=== PATIENT | male | born 1935 | race Caucasian/White ===

== ENCOUNTER 2016-11-08 08:36 | Outpatient (CLI) | payer MEDICARE, BC ==
[~2016-11-08] VITALS: Ht 182.9 cm; Wt 122.7 kg
--- NOTE | ~2016-11-08 | HEMODYNAMI ---
PATIENT:JOYCELYN ALEXANDER MEDICAL RECORD: [id number] : 35 LOCATION:[facility] ADMISSION DATE: 11/08/16 Generatedon:11/08/201612:59 Patient name: JOYCELYN ALEXANDER Patient #: [id number] SSN: [id number] : 1935 Date of study: 11/08/2016 Page: Of Hemodynamic Procedure Report Patient Data Patient Demographics Procedure consent was obtained First Name: JOYCELYN Gender: Male Last Name: BENJAMIN : 1935 Patient #: [id number] Age: 81 year(s) Race: SSN: [id number] Additional ID: [id number] Contact details [address]: [address] [place] [address] RO[address] State: [place] City: [place] Zip code: [address] Past Medical History History of disease Date Diagnosis Comments CAD PVD Allergies: No known allergies Admission Admission Data Admission Date: 11/08/2016 Admission Time: 8:36 Arrival Date: 11/08/2016 Arrival Time: 0:00 Admit Source: Other Insurance Payor: Private health insurance, Medicare Height (in.): 72 BSA: 2.4 (m2) Height (cm.): 182.88 BMI: 35.8 (kg/m2) Weight (lbs.): 264 Weight (kg.): 119.75 Lab Results Lab Result Date: 11/08/2016 Lab Result Time: 0:00 Biochemistry Name Units Result Min Max BUN mg/dl 12 --(-*--)-- 7 18 Creatinine mg/dl 1.2 --(---*)-- 0.6 1.3 CBC Name Units Result Min Max Hemoglobin g/dl 11.7 *-(----)-- 13.5 17.5 Procedure Procedure Types Cath Procedure Diagnostic Procedure LHC LHC w/Coronaries Procedure Description Procedure Date Procedure Date: 11/08/2016 Procedure Start Time: 12:34 Procedure End Time: 12:53 Procedure Staff Name Function Nishant Almonte MD Performing Physician Ajit Allison RT Scrub Cele Jensen RN Nurse Emmy Bui RN Nurse Blair Conti RN Technical Solutions Consultant Rut Prieto RT Monitor Procedure Data Cath Procedure Fluoroscopy Diagnostic fluoroscopy Total fluoroscopy Time: 4.8 time: 4.8 min min Diagnostic fluoroscopy Total fluoroscopy dose: 999 dose: 999 mGy mGy Contrast Material Contrast Material Type Amount (ml) Isovue 300 107 Entry Location Entry Primary Successful Side Size Upsize Upsize Entry Closure Succes sful Closure Location (Fr) 1 (Fr) 2 (Fr) Remarks Device Remarks Femoral Right 5 Fr 6 Fr Vascade artery Short Closure System Estimated blood loss: 10 ml Diagnostic catheters Device Type Used For End Catheter Placement Cordis 5Fr Pigtail Procedure Catheter (MP) Cordis 5Fr JL 4.0 Procedure Catheter (MP) Cordis 5Fr 3DRC Catheter Procedure (MP) Cordis Infinity 5Fr JL 5 catheter Procedure Complications No complications Procedure Medications Medication Administration Route Dosage Oxygen NC 2 l/min Heparin Flush Bag added to field 2 bags (1000units/500ml NS) Lidocaine 2% added to field 20 Benadryl I.V. 50 mg Versed I.V. 1 mg Fentanyl I.V. 50 mcg Versed I.V. 1 mg Fentanyl I.V. 50 mcg Versed I.V. 0.5 mg Fentanyl I.V. 25 mcg Versed I.V. 0.5 mg Fentanyl I.V. 25 mcg Hemodynamics Rest BSA: 2.4 (m2) HGB: 11.7 (g/dl) O2 Consumption: Estimated: 326.4 (ml/min) O2 Cons umption indexed: Estimated:136 (ml/min/m) Pre Cath Intra NCS Post Cath Vital Signs Time Heart Resp SPO2 etCO2 YG1msps NIBP (mmHg) Rhythm Pain Sedation Rate (ipm) (%) (mmHg) (mmHg) Status Level (bpm) 12:24:04 62 16 99 0 0 168/82(115) NSR 0 (11) 10(A) , No pain 12:28:28 59 18 98 0 0 168/84(121) NSR 0 (11) 10(A) , No pain 12:32:47 67 14 95 0 0 146/76(128) NSR 0 (11) 10(A) , No pain 12:37:02 62 15 96 0 0 136/74(110) NSR 0 (11) 10(A) , No pain 12:41:17 67 16 94 0 0 148/75(108) NSR 0 (11) 9(A) , No pain 12:45:35 75 17 94 0 0 130/65(93) NSR 0 (11) 9(A) , No pain 12:49:47 75 18 97 0 0 143/72(115) NSR 0 (11) 9(A) , No pain 12:54:03 77 16 95 0 0 141/71(96) NSR 0 (11) 10(A) , No pain Medications Time Medication Route Dose Verified Delivered Reason Notes Effec tiveness by by 12:10:20 Oxygen NC 2 Cele Cele used for l/min Jensen Jensen overcoiler RN 12:10:41 Heparin Flush added 2 Cele Cele used for Bag to bags Jensen Jensen procedure (1000units/500ml field RN RN NS) 12:10:49 Lidocaine 2% added 20ml Cele Cele used for to vial Jensen Jensen procedure field RN RN 12:22:47 Benadryl I.V. 50 mg Cele Cele Per Jensen Jensen physician RN RN 12:27:52 Versed I.V. 1 mg Cele Cele for Jensen Jensen sedation RN RN 12:27:57 Fentanyl I.V. 50 Cele Cele for mcg Jensen Jensen sedation RN RN 12:30:19 Versed I.V. 1 mg Cele Cele for Jensen Jensen sedation RN RN 12:30:22 Fentanyl I.V. 50 Cele Cele for mcg Jensen Jensen sedation RN RN 12:31:34 Versed I.V. 0.5 Cele Cele for mg Jensen Jensen sedation RN RN 12:31:40 Fentanyl I.V. 25 Cele Cele for mcg Jensen Jensen sedation RN RN 12:49:23 Versed I.V. 0.5 Cele Buffie for mg Jensen Bui RN sedation RN 12:49:30 Fentanyl I.V. 25 Cele Buffie for mcg Jensen Bui RN sedation equipment lead Log Time Note 12:08:25 Patient Height : 72 inches 12:08:52 Patient Weight : 264 lbs 12:08:52 Insurance Payor : Private health insurance, Medicare 12:09:02 Admit Source: Other 12:09:05 Arrival Date: 11/08/2016 12:00:00 AM 12:09:19 Diagnostic Cath Status : Elective 12:10:15 Blair Conti RN sent for patient. Start room use. 12:10:17 Time tracking: Regular hours 12:10:20 Oxygen 2 l/min NC was given by Cele Jensen RN; used for procedure; 12:10:23 Plan of Care:Hemodynamics will remain stable., Cardiac rhythm will remain stable., Comfort level will be maintained., Respiratory function will remain adequate., Patient/ family verbilizes understanding of procedure., Procedure tolerated without complication., Recovers from procedure without complications.. 12:10:32 Patient received from Outpatients to CCL 1 Alert and oriented. Tansferred to table in Supine position. 12:10:41 Heparin Flush Bag (1000units/500ml NS) 2 bags added to field was given by Cele Jensen RN; used for procedure; 12:10:44 H&P Date Dictated: 11/07/2016 Within 30 days and on chart., H&P Addendum completed by physician on day of procedure. (MUST COMPLETE FOR ALL OUTPATIENTS). 12:10:48 Family in waiting room. 12:10:49 Lidocaine 2% 20ml vial added to field was given by Cele Jensen RN; used for procedure; 12:10:59 Patient NPO since Midnight. 12:11:10 Patient allergic to No known allergies 12:11:24 Is the patient allergic to Iodine/contrast media? No. 12:17:45 Warm blankets applied, and bianca hugger turned on for patient comfort. 12:17:48 Correct patient and procedure confirmed by team. 12:17:50 Signed procedure consent form obtained from patient. 12:17:57 Is patient on blood thinner?Yes 12:18:02 ACC The patient was administered the following blood thiners within the last 24 hours: ACCPlavix 12:18:14 Patient diabetic? No. 12:18:28 Previous problem with sedation/anesthesia? No ? 12:18:55 Lab Result : BUN 12 mg/dl 12:18:55 Lab Result : Hemoglobin 11.7 g/dl 12:18:55 Lab Result : Creatinine 1.2 mg/dl 12:20:03 ECG and BP/O2 sat monitors applied to patient. 12:22:18 Snore? Yes 12:22:22 Sleep apnea? Yes 12:22:24 Deviated septum? No 12::26 Opens mouth fully? No 12:22:28 Sticks out tongue? Yes 12:22:38 Dentures? No ? 12:22:46 Patient pain scale 0/10 ?. 12::47 Benadryl 50 mg I.V. was given by Cele Jensen RN; Per physician; 12::55 IV patent on arrival in left forearm with 0.9% NaCl at [facility]. 12::57 Vital chart was started 12:23:01 Lab results completed and on chart. 12::07 Right groin area was prepped with chlora-prep and draped in sterile fashion 12::08 Alarms reviewed by R. N. 12::09 Sharps counted by scrub and verified by R.N. 12:26:43 Physician arrived 12::45 --------ALL STOP TIME OUT------ 12::49 Final Timeout: patient, procedure, and site verified with staff and physician. All members of the team are in agreement. 12::56 Right groin site verified by team. 12::59 Physical assessment completed. ASA score P 2 - A patient with mild systemic disease as per Nishant Almonte MD. 12:27:05 Sedation plan: IV Moderate Sedation Versed, Fentanyl 12::52 Versed 1 mg I.V. was given by Cele Jensen RN; for sedation; 12::57 Fentanyl 50 mcg I.V. was given by Cele Jensen RN; for sedation; 12::19 Versed 1 mg I.V. was given by Cele Jensen RN; for sedation; 12:: Fentanyl 50 mcg I.V. was given by Cele Jensen RN; for sedation; :34 Versed 0.5 mg I.V. was given by Cele Jensen RN; for sedation; 12::40 Fentanyl 25 mcg I.V. was given by Cele Jensen RN; for sedation; 12:34:14 Use device set Femoral Dx 12::18 Procedure started. 12::18 Full Disclosure recording started 12:34:22 Local anesthetic to right femoral artery with Lidocaine 2% by Nishant Almonte MD.INITIAL ACCESS ONLY 12:34:23 Zero performed for pressure channel P1 12:34:34 Zero performed for pressure channel P1 12:34:45 Zero performed for pressure channel P1 12:35:00 Acist Syringe opened to sterile field. 12:35:01 Bag Decanter opened to sterile field. 12:35:01 Cardinal Cath Pack opened to sterile field. 12:35:01 Terumo 5Fr [place] Sheath opened to sterile field. 12:35:02 St Jose 260cm J .035 wire opened to sterile field. 12:35:03 Acist Hand Control opened to sterile field. 12:35:04 Acist Manifold opened to sterile field. 12:35:05 Cordis Infinity 5Fr Multipack catheter opened to sterile field. 12:35:08 Tegaderm 4 x 4 opened to sterile field. 12:35:21 A 5 Fr sheath was inserted into the Right Femoral artery 12:38:57 A Cordis 5Fr Pigtail Catheter (MP) was advanced over the wire and used for Procedure. 12:39:02 LV gram done using HUDSON 12:39:07 LV angiography performed. 12:40:09 EF : 55 % 12:40:13 Catheter removed. 12:40:54 A Cordis 5Fr JL 4.0 Catheter (MP) was advanced over the wire and used for Procedure. 12:41:26 LCA angiography performed. 12:41:29 Catheter removed. 12:41:46 A Cordis 5Fr 3DRC Catheter (MP) was advanced over the wire and used for Procedure. 12:41:56 RCA angiography performed. 12:44:02 Catheter removed. 12:45:41 A Cordis Infinity 5Fr JL 5 catheter was advanced over the wire and used for .unable to cannulate 12:45:54 Terumo 6Fr [place] Sheath opened to sterile field. 12:46:11 Sheath upsized to a 6 Fr Short. 12:47:37 Medtronic Launcher 6Fr EBU 4.5 guide catheter opened to sterile field. 12:47:54 LCA angiography performed. 12:49:23 Versed 0.5 mg I.V. was given by Emmy Bui RN; for sedation; 12:49:30 Fentanyl 25 mcg I.V. was given by Emmy Bui RN; for sedation; 12:51:12 Catheter removed. 12:51:21 Vascade 6/7 Fr Closure Device opened to sterile field. 12:51:29 Procedure ended.(Physican Out) 12:51:43 Fluoroscopy time 04.80 minutes. 12:51:51 Flurop Dose total: 999 12:51:51 Fluoroscopy dose: 999 mGy 12:51:59 Contrast amount:Isovue 300 107ml. 12:52:01 Sharps counted by scrub and verified by R.N. 12:52:04 Insertion/operative site no bleeding no hematoma. 12:52:08 Post Procedure Pulses reassessed and unchanged 12:52:12 Post-procedure physical assessment completed. ASA score P 2 - A patient with mild systemic disease as per Nishant Almonte MD. 12:52:17 Post procedure rhythm: unchanged. 12:52:22 Estimated blood loss: 10 ml 12:52:34 Sheath removed intact; hemostasis achieved with Vascade Closure System to the Right Femoral artery. 12:52:41 Post procedure instruction explained to patient.Patient verbalizes understanding. 12:52:49 Procedure and supply charges have been captured, reviewed, submitted and are correct. 12:53:18 Procedure Complication : No complications 12:53:20 Vital chart was stopped 12:53:28 See physician's report for complete and final results. 12:53:46 Report given to Outpatients. 12:53:49 Patient transfered to Outpatients with Stretcher. 12:53:52 Procedure ended. 12:53:52 Full Disclosure recording stopped 12:53:55 End room use (Document Last) 12:53:55 End room use (Document Last) Device Usage Item Name Manufacture Quantity Catalog Hospital Part Current Minimal Lot# / Number Charge Number Stock Stock Serial# Code Acist Acist 1 [id number] [id number] [id number] 20 Syringe Medical Systems Inc Bag Microtek 1 2002S 514616 45507 907471 5 [employer] Cardinal Cardinal [address] 400168 81318 430486 5 AutoRadio [facility] 1 [id number] 559404 838708 015424 [address] Jose 1 970425 075424 186959 883085 30 260cm J .035 wire Acist Acist 1 20838 323820 242660 879011 5 Hand Medical Control Systems Inc Acist Acist 1 26399 069146 939760 993907 5 Gamervision [employer] Inc Cordis Cardinal 1 [id number] 428538 96903 455446 30 [employer] Tapjoy 5Fr Multipack catheter Tegaderm 3M 1 [id number] 957425 828883 902973 5 4 x 4 Cordis Cardinal 1 095391 5 5Fr Health Pigtail Catheter (MP) Cordis Cardinal 1 176175 5 5Fr JL Health 4.0 Catheter (MP) Cordis Cardinal 1 [id number] 5 5Fr 3DRC Health Catheter (MP) Cordis Cardinal 1 [id number] 178068 173121 233149 5 Amcom Software 5Fr JL 5 catheter Terumo Terumo 1 [id number] 101904 865225 098945 40 6Fr [place] Sheath Medtronic Medtronic 1 [id number] 473274 13816 987893 0 Launcher 6Fr EBU 4.5 guide catheter Vascade Cardiva 1 [id number] 224259 879009 878979 5 6/7 Fr Medical, Closure Inc. Device Signature Audit Clayton Stage Time Signature Unsigned Intra-Procedure 11/08/2016 Rut Prieto 12:59:45 PM RT(R) Signatures Monitor : Rut Prieto Signature : RT Date : Time : [address] [address]
[~2016-11-08 08:36] MED LIST: AMBIEN10 MG PO; ANUSOL-HC25 MG RC; ASPIRIN 81 MG E81 MG PO; ASPIRIN81 MG PO; BAYER CHEWABLE81 MG PO; BIAXIN 500 MG500 MG PO; CARAFATE1 G; CO Q-10200 MG PO; CRESTOR10 MG PO; CRESTOR5 MG PO; DIOVAN160 MG; DIOVAN320 MG PO; EFFIENT10 MG PO; FERROUS SULFAT325 MG PO; HYDROCODON-ACE1 EAC7 PO; MOTRIN800 MG PO; MULTIPLE VITAMI1 TA1 PO; NORVASC10 MG; NORVASC10 MG PO; OMEGA-3100 MG PO; PLAVIX75 MG PO; PRAVACHOL40 MG PO; PRILOSEC20 MG PO; PROCTOSOL HC 2.5%; PROTONIX40 MG PO; ULTRAM50 MG PO; VICODIN 5/500 T1 TAB PO; ZETIA10 MG PO
[2016-11-08] MEDS ORDERED: BACTRIM DS TABL1 TAB PO (09:38)
[2016-11-08 09:42] VITALS: BP 125/66; Ht 182.9 cm; Wt 122.7 kg
[2016-11-08 10:10] LABS: CALCIUM 8.5 mg/dL (8.5-10.1); CARBON DIOXIDE 23.8 mmol/L (21.0-32.0); CREATININE - SERUM 1.2 mg/dL (0.6-1.3); POTASSIUM - SERUM 4.8 mmol/L (3.5-5.1)
[2016-11-08 10:16] LABS: BASOPHILS 0.5 % (0.0-2.0); EOSINOPHILS 4.4 % (0-7); HEMATOCRIT 35.7 % (42.0-54.0); HEMOGLOBIN 11.7 g/dL (13.5-17.5); LYMPHOCYTES 34.7 % (15-50); MCH 31.4 pg (26.0-34.0); MCHC 32.8 g/dL (31.0-37.0); MCV 95.7 fL (80.0-100.0); MEAN PLATELET VOLUME 9.6 fL (7.4-10.4); MONOCYTES 7.1 % (2-11); NEUTROPHILS 53.3 % (40-80); PLATELET COUNT 210 10x3/uL (130-400); RBC 3.73 10x6/uL (4.20-6.10); RDW 13.6 % (11.5-14.5); WBC 5.5 10x3/uL (4.8-10.8)
[2016-11-08] MEDS ORDERED: BETAPACE 80 MG80 MG PO (13:25)
--- NOTE | 2016-11-08 13:29 | NUR ---
CHEST PAIN IS DENIED WITH HR 64 BP 145/71 6 FR VASCADE R/GROIN CDI NO BLEEDING NO HEMATOMA NOTED WILL MONITOR
--- NOTE | 2016-11-08 14:04 | NUR ---
VSS WITH 6 FR VASCADE R/GROIN CDI NO BLEEDING NO HEMATOMA NOTED. CHEST PAIN IS DENIED. INSTRUCTED PATIENT TO KEEP HEAD FLAT ON PILLOW WITH RLE STRAIGHT
--- NOTE | 2016-11-08 14:27 | NUR ---
VSS WITH CHEST PAIN DENIED. 6 FR VASCADE R/GROIN CDI NO BLEEDING NO HEMATOMA NOTED SANDWICH AND SODA PROVIDED WITH FAMILY TO ASSIST
--- NOTE | 2016-11-08 15:03 | NUR ---
6FR VASCADE R GROIN CDI NO BLEEDING NO HEMATOMA NOTED. CHEST PAIN IS DENIED PATIENT TOLERATING SANDWICH AND SODA WITH NAUSEA DENIED
--- NOTE | 2016-11-08 15:52 | NUR ---
PIV REMOVED FROM LEFT ARM WITH DRESSING APPLIED 6 FR VASCADE R/GROIN CDI NO BLEEDING NO HEMATOMA NOTED PATIENT UP TO GET DRESSED FOR DISCHARGE CHEST PAIN IS DENIED 1600 DISCHARGE INSTRUCTIONS GONE OVER WITH PATIENT AND BOTH VERBALIZE UNDERSTANDING. LEFT VIA WC TO [facility] FOR FAMILY TO DRIVE HOME
--- NOTE | 2016-11-13 14:16 | OP ---
PATIENT NAME: JOYCELYN ALEXANDER MEDICAL RECORD: [id number] :35 LOCATION:[facility] ADMISSION DATE: SURGEON: JASPER BARRAGAN MD DATE OF OPERATION: 11/08/2016 PROCEDURES: 1. Left heart catheterization. 2. Selective coronary angiography. 3. Left ventriculogram. INDICATION: Angina, new onset atrial fibrillation and shortness of breath. PROCEDURE IN DETAIL: After informed consent was obtained and after detailed explanation of risks, benefits as well as alternative therapies, the patient elected to proceed with angiogram and heart catheterization. The right femoral area was prepped and draped in normal sterile fashion. The right femoral artery was cannulated via modified Seldinger technique with placement of 6-Tunisian sheath. All catheters exchanged through this sheath. FINDINGS: Left ventriculogram was performed in the standard 30-degree HUDSON view reveals good cardiac wall motion throughout all segments. Overall ejection fraction estimated at 55%. SELECTIVE CORONARY ANGIOGRAPHY: 1. Left main has previously placed stent that is widely patent. 2. Left anterior descending has previously placed stents that are widely patent. There is no disease elsewise throughout the LAD or its branches. 3. Left circumflex shows moderate irregularities, but no flow-limiting stenosis. 4. Right coronary has moderate irregularities, but no flow-limiting stenosis. OVERALL IMPRESSION: Wide patency of all the previously placed stents. No disease elsewise. Center medical management on treatment of the dysrythmia. TRANSINT:[id number] Voice Confirmation ID: [id number] DOCUMENT ID: [id number] JASPER BARRAGAN MD at 1416 CC: [id number] DICTATION DATE: 11/08/16 1258 DOUBLE BASS PLAYER: 11/08/16 1900 DEP CLI 11/08/[address] [facility] [address] [place] [id number]
[2017-01-11] MEDS ORDERED: TIROSINT25 MCG PO (11:23)
[2017-01-11] MEDS ORDERED: FERROUS SULFAT325 MG PO (11:23)
== END 2016-11-08 16:23 | disposition home or self-care (01) ==
LOC: D.CATH 08:36
PROVIDERS: Internal Medicine Interventional Cardiology
DX: I25.119 Atherosclerotic heart disease of native coronary artery with unspecified angina pectoris (principal); R09.89 Other specified symptoms and signs involving the circulatory and respiratory systems; I48.91 Unspecified atrial fibrillation; E78.5 Hyperlipidemia, unspecified; I10 Essential (primary) hypertension

== ENCOUNTER → 2017-01-02 16:36 | Outpatient (CLI) | payer MEDICARE, BC ==
[2016-11-08 09:42] VITALS: BMI 36.7
[~2017-01-02 16:36] MED LIST changes: +BACTRIM DS TABL1 TAB PO; +BETAPACE 80 MG80 MG PO; +ELIQUIS5 MG PO; +TIROSINT25 MCG PO
[2017-01-02 16:52] LABS: BASOPHILS 0.6 % (0.0-2.0); HEMATOCRIT 30.9 % (42.0-54.0); HEMOGLOBIN 9.6 g/dL (13.5-17.5); IMMATURE GRANULOCYTES 0.2 % (0-5); LYMPHOCYTES 36.1 % (15-50); MCH 28.7 pg (26.0-34.0); MCHC 31.1 g/dL (31.0-37.0); MCV 92.5 fL (80.0-100.0); MEAN PLATELET VOLUME 9.9 fL (7.4-10.4); MONOCYTES 8.6 % (2-11); NEUTROPHILS 49.5 % (40-80); PLATELET COUNT 204 10x3/uL (130-400); RBC 3.34 10x6/uL (4.20-6.10); WBC 4.8 10x3/uL (4.8-10.8)
== END | disposition home or self-care (01) ==
LOC: D.LABREF 16:36
PROVIDERS: Internal Medicine Interventional Cardiology
DX: R06.02 Shortness of breath (principal)

== ENCOUNTER 2017-01-11 14:55 | Outpatient (CLI) | payer MEDICARE, BC ==
[~2017-01-11] VITALS: Ht 182.9 cm; Wt 120.5 kg
--- NOTE | ~2017-01-11 | HEMODYNAMI ---
PATIENT:JOYCELYN ALEXANDER MEDICAL RECORD: [id number] : 35 LOCATION:[facility] ADMISSION DATE: 01/11/17 Generatedon:01/11/201714:28 Patient name: JOYCELYN ALEXANDER Patient #: [id number] SSN: [id number] : 1935 Date of study: 01/11/2017 Page: Of Hemodynamic Procedure Report Patient Data Patient Demographics Procedure consent was obtained First Name: JOYCELYN Gender: Male Last Name: BENJAMIN : 1935 Patient #: [id number] Age: 81 year(s) Race: SSN: [id number] Additional ID: [id number] Contact details Address: [address] [place] [address] ROAD State: [place] City: [place] Zip code: [address] Past Medical History History of disease Date Diagnosis Comments CAD PVD Allergies: No known allergies Admission Admission Data Admission Date: 01/11/2017 Admission Time: 13:00 Arrival Date: 01/11/2017 Arrival Time: 13:00 Admit Source: Other Insurance Payor: Medicare Height (in.): 72 BSA: 2.43 (m2) Height (cm.): 182.88 BMI: 37.03 (kg/m2) Weight (lbs.): 273 Weight (kg.): 123.83 Lab Results Lab Result Date: 01/11/2017 Lab Result Time: 0:00 Biochemistry Name Units Result Min Max BUN mg/dl 11 --(-*--)-- 7 18 Creatinine mg/dl 0.8 --(-*--)-- 0.6 1.3 CBC Name Units Result Min Max Hemoglobin g/dl 10.6 *-(----)-- 13.5 17.5 Procedure Procedure Types Cath Procedure Diagnostic Procedure PPM/ICD PPM Dual Implant Miscellaneous Procedures Moderate Sedation up to 45 minutes Procedure Description Procedure Date Procedure Date: 01/11/2017 Procedure Start Time: 13:51 Procedure End Time: 14:24 Procedure Staff Name Function Luis Manuel Garcia MD Performing Physician Roxanne Stephenson RT Monitor Ajit Allison RT Scrub Sailaja Kapadia RN Nurse Mitali Dempsey RT Scrub Danyel Donaldson MD Assisting physician Indication Angina Procedure Data Cath Procedure Fluoroscopy Diagnostic fluoroscopy Total fluoroscopy Time: 2 time: 2 min min Diagnostic fluoroscopy Total fluoroscopy dose: dose: 85.94 mGy 85.94 mGy Contrast Material Contrast Material Type Amount (ml) Isovue 370 0 Estimated blood loss: 5 ml Procedure Complications No complications Procedure Medications Medication Administration Route Dosage Lidocaine 1% with added to field 30 ml Epi Bupivacaine 0.5% added to field 20 ml Ancef Irrigation added to field (1gm/500ml NS) Ancef (1Gm/50ml NS) I.V.P.B 1 g Fentanyl I.V. 50 mcg Versed I.V. 1 mg Fentanyl I.V. 50 mcg Versed I.V. 0.5 mg Fentanyl I.V. 25 mcg Versed I.V. 0.5 mg Fentanyl I.V. 25 mcg Oxygen NC 2 l/min Hemodynamics Rest BSA: 2.43 (m2) HGB: 10.6 (g/dl) O2 Consumption: Estimated: 259.67 (ml/min) O2 Co nsumption indexed: Estimated:106.86 (ml/min/m) Heart Rate: 51 (bpm) Snapshots Pre Cath Intra NCS Post Cath Vital Signs Time Heart Resp SPO2 NIBP (mmHg) Rhythm Pain Status Sedation Rate (ipm) (%) Level (bpm) 13:32:12 53 16 96 210/113(171) SB 0 (11) , No 10(A) pain 13:36:43 49 16 97 191/90(166) SB 0 (11) , No 10(A) pain 13:41:05 49 16 97 165/85(151) SB 0 (11) , No 10(A) pain 13:45:29 49 17 98 175/86(151) SB 6 (11) , 10(A) Intense 13:53:34 49 16 99 190/89(159) SB 4 (11) , 10(A) Distressing 13:59:16 54 16 95 210/96(173) SB 4 (11) , 10(A) Distressing 14:03:53 49 16 96 195/102(171) SB 4 (11) , 10(A) Distressing 14:08:28 59 16 96 150/90(111) SB 0 (11) , No 10(A) pain 14:12:52 56 22 97 169/85(153) SB 0 (11) , No 10(A) pain 14:17:22 60 15 98 173/89(152) Paced 0 (11) , No 10(A) pain 14:21:56 62 20 100 166/96(122) Paced 0 (11) , No 10(A) pain Medications Time Medication Route Dose Verified Delivered Reason Notes Effective ness by by 13:30:58 Lidocaine added 30 ml Luis Manuel Luis Manuel Per 1% with Epi to [facility] physician field MD GAYTAN 13:31:16 Bupivacaine added 20 ml Luis Manuel Luis Manuel Per 0.5% to [facility] physician field MD GAYTAN 13:31:38 Ancef added Luis Manuel Luis Manuel Per Irrigation to [facility] physician (1gm/500ml field MD GAYTAN NS) 13:31:48 Ancef I.V.P.B 1 g Luis Manuel Sailaja Per (1Gm/50ml JoseAntolin Kapadia RN physician NS) 13:49:40 Fentanyl I.V. 50 Luis Manuel Sailaja for back mcg JoseAntolin Kapadia RN pain 13:50:50 Versed I.V. 1 mg Luis Manuel Sailaja for JoseAntolin Kapadia RN sedation 13:53:24 Fentanyl I.V. 50 Luis Manuel Sailaja for back mcg ZumbrotaAntolin Kapadia RN pain 13:54:58 Versed I.V. 0.5 Luis Manuel Sailaja for mg JoseAntolin Kapadia RN sedation 14:03:55 Fentanyl I.V. 25 Luis Manuel Sailaja for back mcg ZumbrotaAntolin Kapadia RN pain 14:03:59 Versed I.V. 0.5 Luis Manuel Sailaja for mg JoseAntolin Kapadia RN sedation 14:09:12 Oxygen NC 2 Luis Manuel Sailaja Per l/min ZumbrotaAntolin Kapadia RN physician 14:10:06 Fentanyl I.V. 25 Luis Manuel Sailaja for mcg ZumbrotaAntolin Kapadia RN sedation Procedure Log Time Note 12:19:50 Informed consent obtained and on chart 12:20:47 Patient Height : 182.88 cm 12:20:55 Patient Weight : 123.83 kg 12:20:56 Arrival Date: 01/11/2017 1:00:00 PM 12:21:14 Admit Source: Other 12:21:20 Insurance Payor : Medicare 12::42 Lab Result : Hemoglobin 10.6 g/dl 12::42 Lab Result : Creatinine 0.8 mg/dl 12::42 Lab Result : BUN 11 mg/dl 12:23:47 Diagnostic Cath Status : Elective 12:24:06 Indication : Angina 13:07:56 Time tracking: Regular hours 13:08:01 Plan of Care:Hemodynamics will remain stable., Cardiac rhythm will remain stable., Comfort level will be maintained., Respiratory function will remain adequate., Patient/ family verbilizes understanding of procedure., Procedure tolerated without complication., Recovers from procedure without complications.. 13:12:04 Emmy Bui RN sent for patient. Start room use. 13:20:22 Patient received from Pre/Post Procedure Room to [facility] Alert and oriented. Tansferred to table in Supine position. 13:20:23 Warm blankets applied, and bianca hugger turned on for patient comfort. 13:20:23 Correct patient and procedure confirmed by team. 13:20:24 ECG and BP/O2 sat monitors applied to patient. 13:29:53 Vital chart was started 13:29:56 Baseline sample Acquired. 13:30:00 Rhythm: atrial fibrillation 13:30:01 Full Disclosure recording started 13:30:18 H&P Date Dictated: 01/02/2017 Within 30 days and on chart., H&P Addendum completed by physician on day of procedure. (MUST COMPLETE FOR ALL OUTPATIENTS). 13:30:19 Pre-procedure instructions explained to patient. 13:30:20 Pre-op teaching completed and patient verbalized understanding. 13:30:21 Family in waiting room. 13:30:22 Patient NPO since Midnight. 13:30:30 Is the patient allergic to Iodine/contrast media? No. 13:30:31 Was the patient premedicated? N/A 13:30:37 Is patient on blood thinner?No 13:30:58 Lidocaine 1% with Epi 30 ml added to field was administered by Luis Manuel Garcia MD; Per physician; 13:31:07 Patient diabetic? No. 13:31:12 Previous problem with sedation/anesthesia? No ? 13:31:14 Snore? Yes 13:31:16 Bupivacaine 0.5% 20 ml added to field was administered by Luis Manuel Garcia MD; Per physician; 13:31:38 Ancef Irrigation (1gm/500ml NS) added to field was administered by Luis Manuel Garcia MD; Per physician; 13:31:48 Ancef (1Gm/50ml NS) 1 g I.V.P.B was administered by Saliaja Kapadia RN; Per physician; 13:32:49 Sleep apnea? Yes 13:32:51 Deviated septum? No 13:32:52 Opens mouth fully? Yes 13:32:52 Sticks out tongue? Yes 13:32:56 Airway obstruction? No ? 13:32:59 Dentures? No ? 13:33:04 Pre procedure: right dorsailis pedis pulse 1+ Palpable, but thready & weak; easily obliterated 13:33:06 Patient pain scale 0/10 ?. 13:33:15 IV patent on arrival in left forearm with 0.9% NaCl at [facility]. 13:33:18 Lab results completed and on chart. 13:33:31 Left chest area was prepped with chlora-prep and draped in sterile fashion 13:33:31 Alarms reviewed by R. N. 13:33:32 Sharps counted by scrub and verified by R.N. 13:33:41 Use device set Pacemaker Set 13:33:42 Mepilex Dressing opened to sterile field. 13:33:43 2.0 Ticron Multipack opened to sterile field. 13:33:44 3.0 Vicryl Multipack [id number] opened to sterile field. 13:33:45 5.0 Monocryl PS2 [id number] opened to sterile field. 13:33:58 Medtronic Adapta PPM Dual Generator opened to sterile field. 13:35:25 Medtronic 4574-45 PPM Lead opened to sterile field. 13:36:43 Medtronic 4092-52 PPM Lead opened to sterile field. 13:38:54 Physician paged 13:39:23 Medtronic manufacturer's service representative Vijay Oneil present for procedure. 13:39:36 Pre sharps counted by scrub and verified by RN: Sutures: 14 Sponges: 5 Stick needles: 2 Skin needles: 2 Blade: 1 Cautery: 1 13:39:40 Grounding pad site Left thigh. 13:39:41 Grounding pad site free from injury. 13:49:40 Fentanyl 50 mcg I.V. was administered by Sailaja Kapadia RN; for back pain; 13:50:11 Physician arrived 13:50:11 --------ALL STOP TIME OUT------ 13:50:12 Final Timeout: patient, procedure, and site verified with staff and physician. All members of the team are in agreement. 13:50:16 Left chest site verified by team. 13:50:21 Physical assessment completed. ASA score P 2 - A patient with mild systemic disease as per Luis Manuel Garcia MD. 13:50:26 Sedation plan: IV Moderate Sedation Versed, Fentanyl 13:50:50 Versed 1 mg I.V. was administered by Sailaja Kapadia RN; for sedation; 13:51:19 Procedure started. 13:53:24 Fentanyl 50 mcg I.V. was administered by Sailaja Kapadia RN; for back pain; 13:54:24 Lidocaine 1% w/epi to left subclavicular area by Danyel Donaldson MD. 13:54:41 Incision made to left subclavicular area. 13:54:58 Versed 0.5 mg I.V. was administered by Sailaja Kapadia RN; for sedation; 14:01:29 Generator pocket made/opened. 14:02:17 Left subclavian vein accessed with 7Fr Safe Sheath. 14:03:32 Ventricular lead inserted and advanced. 14:03:55 Fentanyl 25 mcg I.V. was administered by Sailaja Kapadia RN; for back pain; 14:03:59 Versed 0.5 mg I.V. was administered by Sailaja Kapadia RN; for sedation; 14:05:59 Ventricular lead positioned. 14:06:[address] Peel-[address]-way sheath was split and removed. 14:06:07 Atrial lead inserted and advanced. 14:06:14 Atrial lead positioned. 14:06:15 Peel-a-way sheath was split and removed. 14:09:12 Oxygen 2 l/min NC was administered by Sailaja Kapadia RN; Per physician; 14:10:06 Fentanyl 25 mcg I.V. was administered by Sailaja Kapadia RN; for sedation; 14:10:55 Ventricular lead attachment was completed with 2-0 ticron. 14:11:00 Atrial lead attachment was completed with 2-0 ticron. 14:11:06 PPM Dual was attached to lead(s) and inserted into pocket. 14:11:30 Generator was sutured in place with 2-0 ticron. 14:15:08 Immobilizer Large opened to sterile field. 14:19:53 Subcutaneous closure was completed with 3-0 vicryl plus. 14:20:00 Skin closure was completed with 5-0 monocryl. 14:21:00 Lt Chest incision was dressed with Mepilex dressing. 14:21:44 Parameters--Ventricular P/R Wave: 5.4mV. Current: 0./8mA; Threshold: 0.50V; Impedence: 595OHMS. 14:22:06 Parameters--Atrial P/R Wave: 1.4mV. Current: 0.1mA; Threshold: 0.50V; Impedence: 601OHMS. 14:22:26 Procedure ended.(Physican Out) 14:22:38 Fluoroscopy time 02.00 minutes. 14:22:47 Fluoroscopy dose: 85.94 mGy 14:22:47 Flurop Dose total: 85.94 14:22:50 Contrast amount:Isovue 370 0ml. 14:22:52 Sharps counted by scrub and verified by R.N. 14:22:55 Insertion/operative site no bleeding no hematoma. 14:23:03 Post Chest area:stable 14:23:14 Post procedure rhythm: sinus rhythm , paced 14:23:17 Estimated blood loss: 5 ml 14:23:18 Post procedure instruction explained to patient.Patient verbalizes understanding. 14:23:19 Patient needs reinforcement of post procedure teaching. 14:23:41 Procedure type changed to Cath procedure, Diagnostic procedure, PPM/ICD, PPM Dual Implant, Miscellaneous Procedures, Moderate Sedation up to 45 minutes 14:23:42 Procedure and supply charges have been captured, reviewed, submitted and are correct. 14:23:46 Procedure Complication : No complications 14:23:48 Vital chart was stopped 14:23:49 See physician's report for complete and final results. 14:23:54 Report given to PCU. 14:23:58 Patient transfered to PCU with Stretcher. 14:24:50 Procedure ended. 14:24:50 Full Disclosure recording stopped 14:24:58 End room use (Document Last) Device Usage Item Name Manufacture Quantity Catalog Hospital Part Current Minimal Lot# / Number Charge Number Stock Stock Serial# Code Mepilex Cardinal 1 [id number] 250015 807277 [id number] 5 Dressing Health 2.0 Ticron Ethicon 0 [id number] 340998 11440 418463 5 Multipack 3.0 Vicryl Ethicon 1 [id number] 653536 913496 479981 5 Multipack [id number] 5.0 Ethicon 1 Y495G 741006 401903 823763 5 Monocryl PS2 Y495G Medtronic Medtronic 1 [id number] 805856 493197 5 [id number] Adapta PPM EXP Dual 01-26-18 Generator Medtronic Medtronic 1 4574-45 751081 096955 5 [id number] 4574-45 PPM EXP Lead 07-26-18 Medtronic Medtronic 1 4092-52 818883 765401 5 [id number] 4092-52 PPM EXP Lead 03-25-17 Immobilizer [place] 1 [id number] 242187 519512 408428 5 Large [facility] Signature Audit [place] Stage Time Signature Unsigned Intra-Procedure 01/11/2017 Roxanne Stephenson 2:28:48 PM RT(R) Signatures Monitor : Roxanne Stephenson RT Signature : Date : Time : [address] [address]
[2017-01-11 11:18] VITALS: BP 174/68; Ht 182.9 cm; Wt 120.5 kg
[2017-01-11 11:44] LABS: HEMATOCRIT 34.1 % (42.0-54.0); HEMOGLOBIN 10.6 g/dL (13.5-17.5); MCH 28.6 pg (26.0-34.0); MCHC 31.1 g/dL (31.0-37.0); MCV 92.2 fL (80.0-100.0); MEAN PLATELET VOLUME 9.2 fL (7.4-10.4); RBC 3.7 10x6/uL (4.20-6.10); RDW 15.8 % (11.5-14.5); WBC 5.1 10x3/uL (4.8-10.8)
[2017-01-11 11:48] LABS: APTT 38.6 SECONDS (22.8-39.4); INR 1.09 (0.85-1.17); PROTIME 13.9 SECONDS (11.6-15.0)
[2017-01-11 11:59] LABS: CALC OSMOLALITY 272 mosm/kg (275-300); CALCIUM 8.7 mg/dL (8.5-10.1); CARBON DIOXIDE 23.4 mmol/L (21.0-32.0); CHLORIDE - SERUM 105 mmol/L (98-107); CREATININE - SERUM 0.8 mg/dL (0.6-1.3); GLUCOSE 100 mg/dL (74-106); POTASSIUM - SERUM 3.8 mmol/L (3.5-5.1); SODIUM 137 mmol/L (136-145); UREA NITROGEN 11 mg/dL (7-18); eGFR NON AFRICAN AMERICAN > 90 mL/min (90-120)
[~2017-01-11 14:55] MED LIST changes: -ELIQUIS5 MG PO
--- NOTE | 2017-01-11 19:28 | NUR ---
RESUMED CARE OF PT, LYING IN BED WITH EYES CLOSED RESPIRATIONS EVEN AND UNLABORED ON 2LPM VIA NC. LEFT AC SALINE LOCKED. 79 SR ON TELEMETRY. LEFT CHEST WALL WNL. LEFT SLING OFF AT THIS TIME. PLAN OF CARE DISCUSSED. CALL LIGHT IN REACH. WILL CONTINUE TO MONITOR. SEE NURSE ASSESSMENT.
[2017-01-11 21:33] VITALS: BP 176/80
[2017-01-12 01:06] VITALS: BP 146/67
--- NOTE | 2017-01-12 05:17 | NUR ---
MARKETING RECRUITER AT BEDSIDE TO OBTAIN VITALS, CALL LIGHT IN REACH. WILL CONTINUE WITH PLAN OF CARE.
[2017-01-12 05:24] VITALS: BP 128/67
--- NOTE | 2017-01-12 07:30 | NUR ---
RECEIVED PT IN BED AAOX4 RESP UNLABORED NAD NOTED DENIES ANY NEEDS AT THIS TIME
[2017-01-12 08:31] VITALS: BP 144/79
--- NOTE | 2017-01-12 10:48 | NUR ---
REVIWED DISCHARGE INSTRUCTIONS PT AND STATE UNDERSTANDING COPY GIVEN DCD LAC SALINE LOCK WITH CATHETER TIP INTACT NO REDNESS OR EDEMA AT SITE PT DISCHARGED HOME LEFT UNIT VIA W/C IN STABLE CONDITION WITH ALL PERSONAL BELONGINGS
--- NOTE | 2017-01-12 13:21 | OP ---
PATIENT NAME: JOYCELYN ALEXANDER MEDICAL RECORD: [id number] :35 LOCATION:D.CAT ADMISSION DATE: SURGEON: DANYEL HONEYCUTT MD DATE OF OPERATION: 01/11/2017 PREOPERATIVE DIAGNOSES: 1. Bradycardia. 2. Sick sinus syndrome. 3. Hypertension. POSTOPERATIVE DIAGNOSES: 1. Bradycardia. 2. Sick sinus syndrome. 3. Hypertension. PROCEDURE: Left subclavian vein dual lead pacemaker placement. SURGEON: Danyel Honeycutt MD. COSURGEON: Luis Manuel Garcia MD. REPORT OF OPERATION: The patient's left chest was prepped and draped in sterile fashion. A 20 mL of 1% lidocaine with epinephrine was infused into the surrounding tissues. A skin incision was made on the left upper lateral chest and a subcutaneous pouch was formed overlying the pectoral fascia. We accessed the patient's left subclavian vein with 2 separate sticks and wires were placed easily. Fluoro was used to note that the wires were in good position in the venous system. Dilators were placed over the wires. The wire and dilators were removed and the leads were advanced through the trocars. At this point, Dr. Garcia came in and positioned the trocars and in good position in the atrium and ventricle. Once they were noted to be functioning appropriately, then these leads were sutured into place with 0 Tycron. The leads were then affixed to the pacemaker and the pacemaker was inserted into the subcutaneous pouch and sutured down using single interrupted 0 Tycron. We irrigated out the wound with antibiotic solution. The subcutaneous tissues were reapproximated with interrupted 3-0 Vicryl and the skin was closed with running subcutaneous 5-0 Monocryl. COMPLICATIONS: None. CONDITION: Stable. ANESTHESIA: Local MAC. BLOOD LOSS: Minimal. TRANSINT:[id number] Voice Confirmation ID: [id number] DOCUMENT ID: [id number] OPERATIVE REPORT [id number] BENJMAINDANYEL SHAE MD at 1321 CC: LUIS MANUEL COLLIER MD and JASPER BARRAGAN MD [id number] DICTATION DATE: 01/11/17 1431 EMPLOYMENT COUNSELOR: 01/11/172017 [facility] CLI 01/12/17 [place] [address]
--- NOTE | 2017-01-16 08:56 | OP ---
PATIENT NAME: JOYCELYN ALEXANDER MEDICAL RECORD: [id number] :35 LOCATION:D.CAT ADMISSION DATE: SURGEON: EMILEE COLLIER MD DATE OF OPERATION: 01/11/2017 PROCEDURE: Lead portion of permanent pacemaker placement. INDICATION: Sick sinus syndrome with bradyarrhythmias. SURGEON: Danyel Donaldson MD. DESCRIPTION OF PROCEDURE: After left subclavian was cannulated via modified Seldinger technique via Dr. Donaldson, first under fluoroscopic guidance, I placed the RV lead in the RV apex without difficulty. After adequate R waves and thresholds were obtained, again, fluoroscopic guidance, I then placed the right atrial lead in the right atrial appendage without difficulty. After adequate P waves and thresholds were again obtained, the leads were attached to appropriate poles of the generator and the pocket was closed via Dr. Donaldson. IMPRESSION: Successful lead portion of permanent pacemaker placement on Joycelyn Alexander. COMPLICATIONS: None. ESTIMATED BLOOD LOSS: Minimal. DISPOSITION: To the floor, stable. TRANSINT:[id number] Voice Confirmation ID: [id number] DOCUMENT ID: [id number] EMILEE COLLIER MD at 0856 CC: [id number] DICTATION DATE: 01/11/17 1415 ENVIRONMENTAL SERVICES ASSISTANT: 01/11/17 2135 [facility] CLI 01/12/17 [address] [place] [address]
== END 2017-01-12 09:48 | disposition home or self-care (01) ==
LOC: D.CATH 14:55 → D.M2 15:08 → D.CATH 01-12 09:48
PROVIDERS: Internal Medicine Interventional Cardiology
DX: I49.5 Sick sinus syndrome (principal); I10 Essential (primary) hypertension

== ENCOUNTER 2017-01-17 16:39 | Observation (INO) | payer MEDICARE, BC ==
[~2017-01-17] VITALS: Ht 182.9 cm; Wt 121.1 kg
--- NOTE | ~2017-01-17 | DS ---
PATIENT:JOYCELYN ALEXANDER :35 MEDICAL RECORD: [id number] DISCHARGE SUMMARY ADMISSION DATE: 01/18/17 DISCHARGE DATE: 01/18/17 DISCHARGE DIAGNOSES: 1. Left hemispheric transient ischemic attack. 2. Paroxysmal atrial fibrillation. 3. Sick sinus syndrome. 4. Essential hypertension. 5. Mild expressive aphasia. HOSPITAL COURSE: An 81-year-old male who recently had a pacemaker placed last week for PAF and bradycardia. He had done well until the night of admission when he became confused and do not know how to use his TV remote and had some mild expressive aphasia. He was brought to the ER where emergent CT did not show evidence of acute CVA. His symptoms actually cleared within 1-2 hours and he has basically had a baseline now. Denies headache. He underwent cardiac monitoring, was unremarkable and pacer interrogation was unremarkable for arrhythmia. Carotid Dopplers showed no evidence of stenosis or high flow. He was not a candidate for an MRI due to his pacemaker placement. Dr. Roa from neurology saw the patient as well and after phone conversation by me with Dr. Garcia this afternoon we felt that full anticoagulation for PAF induced TIA was indicated. He will start Eliquis 5 mg b.i.d. and discontinue his Plavix. At this time, he is asymptomatic ____ discharged home. Discharge H&H is 11 and 35. Chemistry is normal. GFR is greater than 90. DISCHARGE MEDICATIONS: Eliquis 5 mg p.o. b.i.d. He will discontinue Plavix and aspirin at this time, take ferrous sulfate 325 mg p.o. daily, Crestor 5 mg Sunday, Sunday and Sunday evening, Betapace 80 mg tablets 1/2 tab or 40 mg p.o. q.12 hours, Diovan 80 mg tab take 2 or 160 mg p.o. at bedtime, levothyroxine 25 mcg p.o. q.a.m. a.c. breakfast, multivitamin 1 daily, Coenzyme Q10 of 200 mg p.o. daily. DIET: Low cholesterol. ACTIVITY: Progress as tolerated. Return to clinic to see me in [address] scan of the brain. TRANSINT:[id number] Voice Confirmation ID: [id number] DOCUMENT ID: [id number] STEVE KERR MD CC: [id number] DICTATION DATE: 01/18/17 0828 ROSS CARRIER DRIVER: 01/19/17 1244 DIS IN 01/18/17 [facility] [address] [place] [address]
[2017-01-17 17:22] LABS: BASOPHILS 0.7 % (0.0-2.0); EOSINOPHILS 7.5 % (0-7); HEMATOCRIT 35.1 % (42.0-54.0); HEMOGLOBIN 11.1 g/dL (13.5-17.5); IMMATURE GRANULOCYTES 0.2 % (0-5); LYMPHOCYTES 33.7 % (15-50); MCH 29.2 pg (26.0-34.0); MCHC 31.6 g/dL (31.0-37.0); MCV 92.4 fL (80.0-100.0); MEAN PLATELET VOLUME 8.9 fL (7.4-10.4); MONOCYTES 9.3 % (2-11); NEUTROPHILS 48.6 % (40-80); PLATELET COUNT 173 10x3/uL (130-400); RDW 15.6 % (11.5-14.5)
[2017-01-17 17:31] LABS: APTT 34.6 SECONDS (22.8-39.4); INR 1.03 (0.85-1.17); PROTIME 13.3 SECONDS (11.6-15.0)
[2017-01-17 17:49] LABS: ALBUMIN 3.6 g/dL (3.4-5.0); ALKALINE PHOSPHATASE 69 U/L (46-116); ALT (SGPT) 24 U/L (10-68); BILIRUBIN - TOTAL 0.35 mg/dL (0.2-1.3); CALC OSMOLALITY 278 mosm/kg (275-300); CALCIUM 8.5 mg/dL (8.5-10.1); CARBON DIOXIDE 25.1 mmol/L (21.0-32.0); CHLORIDE - SERUM 106 mmol/L (98-107); CREATININE - SERUM 0.8 mg/dL (0.6-1.3); GLUCOSE 104 mg/dL (74-106); POTASSIUM - SERUM 3.8 mmol/L (3.5-5.1); SODIUM 140 mmol/L (136-145); UREA NITROGEN 13 mg/dL (7-18); eGFR NON AFRICAN AMERICAN > 90 mL/min (90-120)
--- NOTE | 2017-01-17 20:14 | NUR ---
REC'D FROM ER DEPT PER STRETCHER TO ROOM 2218 AN 81 Y/O W/M PER SERVICES WITH DX TIA. SALINE LOCK PATENT LEFT AC. PLACED ON HEART MONITOR SHOWING SR WITH FRIST DEGREE BLOCK PT HAS RECENTLY HAD PACEMAKER PLACEMENT DONE. HAS INCISION TO LEFT UPPER CHEST. C/D/I. SPEECH CLEAR AND APPROPRIATE. STEVENS WITH EQUAL AND STRONG CERAMIC COATER. UP AD LUZ MARIA IN ROOM VOIDS WELL IN BR.
--- NOTE | 2017-01-17 21:00 | NUR ---
MEDS GIVEN PER MAR. CALLED EXPLAINED WHAT A TIA CONSISTED OF. AND ALSO WHAT THE PLAN OF CARE WILL BE.
--- NOTE | 2017-01-17 22:00 | NUR ---
PT SPOKE WITH ON PHONE. MEDS GIVEN PER DEC.RESTING IN BED SR UP X2 CALL LIGHT WITHIN REACH.
[2017-01-17 23:07] VITALS: BP 167/80; BMI 36.3
--- NOTE | 2017-01-18 | NUR ---
EYES CLOSED RESPIRATIONS WITH EASE AND UNLABORED. CPAP ON.
--- NOTE | 2017-01-18 02:00 | NUR ---
AROUSES EASILY TO VERBAL STIMULI REMAINS ALERT/ORIENTED X3 SPEECH CLEAR. FOLLOWS COMMANDS.
--- NOTE | 2017-01-18 03:37 | NUR ---
RESTING IN BED RESPIRATIONS WITH EASE AND UNLABORED.
--- NOTE | 2017-01-18 07:50 | NUR ---
ASSESSMENT PER FLOW SHEET.PT WITHOUT DISTRESS.AWAKE AND ALERT THIS AM.WITHOUT SIGNS OF WEAKNESS.CALL LIGHT IN REACH.
[2017-01-18 09:52] VITALS: BP 145/89
--- NOTE | 2017-01-18 10:00 | NUR ---
REMAINS WITHOUT CHANGE. AT SIDE.CALL LIGHT IN REACH
[2017-01-18 11:48] VITALS: BP 138/60
[2017-01-18 12:54] VITALS: Ht 182.9 cm; Wt 121.1 kg
--- NOTE | 2017-01-18 14:00 | NUR ---
REMAINS WITHOUT NEEDS,WITHOUT DISTRESS.
[2017-01-18 15:49] VITALS: BP 157/68
--- NOTE | 2017-01-18 16:00 | NUR ---
AMBULATED IN HALLS.GAIT STEADY,WITHOUT WEAKNESS.MONITOR FOR CHANGE.
--- NOTE | 2017-01-18 16:27 | NUR ---
Patient Name: JOYCELYN ALEXANDER Admission Status: ER Accout number: [id number] Admission Date: 01-18-2017 : 1935 Admission Diagnosis: Attending: DAVID Current LOS: 1 Anticipated DC Date: 01-20-2017 Planned Disposition: Home Primary Insurance: MEDICARE A & B Discharge Planning Comments: CM MET WITH PATIENT AND (EDIL) REGARDING D/C NEEDS AND PLANS. PATIENT STATED HIS WILL DRIVE HIM HOME AT DISCHARGE. PATIENTS STATED THERE ARE 2 STEPS W/O RAILS TO ENTER HOME AND THERE ARE STAIRS INSIDE BUT HE DOES NOT USE THEM. PATIENTS PCP IS DR. KERR AND PHARMACY IS [facility] [address]. PATIENT STATED HE IS INDEPENDENT WITH HIS CARE AND HAS A WALKER, CANE, AND SHOWER CHAIR AT HOME IF NEEDED. PATIENT REFUSED HOME HEALTH AND HAD NO OTHER NEEDS FOR DISCHARGE. CM WILL CONTINUE TO FOLLOW PATIENT WITH D/C NEEDS AND PLANS. PCP DR. ENGLISH [facility] [address]- [phone] EDIL () [phone] Road Machine Operator: Deepika Castellon Is the patient Alert and Oriented? Yes 0 * How many steps to enter\exit or inside your home? 2 W/O RAIL 0 * PCP DR. KERR 0 * Pharmacy [facility] [address] 0 * Preadmission Environment Home with Family 0 * ADLs Independent 0 * Equipment Cane Shower Chair Walker 0 * List name and contact numbers for known caregivers / representatives who currently or will assist patient after discharge: EDIL () [phone] * Additional services required to return to the preadmission environment? Yes 0 * Can the patient safely return to the preadmission environment? Yes 0 * Has this patient been hospitalized within the prior 30 days at any hospital? No 0 Grand Total: 0
[2017-01-18] MEDS ORDERED: ELIQUIS5 MG PO (17:39)
--- NOTE | 2017-01-18 17:40 | HP ---
PATIENT: JOYCELYN ALEXANDER MEDICAL RECORD: [id number] ACCOUNT: [id number] LOCATION:D.MS [id number] : 35 ADMISSION DATE: 01/18/17 HISTORY AND PHYSICAL EXAMINATION REASON FOR ADMISSION: Difficulty speaking and confusion. HISTORY OF PRESENT ILLNESS: The patient is an 81-year-old male with history of paroxysmal atrial fibrillation. 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 The patient had developed increasing trouble with weight control and bradycardia. He underwent a pacemaker placement by Dr. Garcia 1 week ago at this hospital and did well. He was feeling well until last evening. He states that he and his had eaten dinner and after returning from dinner, he was attempting to watch television. He picked up his TV remote control, but did not understand how to work it. He has some trouble with his speech, did not recognize and could not recall his 's name. She called 911 and brought him to the Emergency Room. In the Emergency Room, he was normotensive and his initial CT of the brain did not show evidence of acute stroke. He was admitted for observation, cardiac monitoring and further workup. This morning, he said he is much improved, was able to work his television remote in his room. He has no new balance issue, though stated his speech is still a little bit slurred at times. PAST MEDICAL HISTORY: Multivessel CAD, paroxysmal atrial fibrillation, osteoarthritis, essential hypertension, hyperlipidemia, GERD, diverticulitis, lumbar disc disease, history of ____ on Plavix in the past, postoperative nausea and vomiting, obstructive sleep apnea, essential obesity, remote history of MRSA positivity, history of pituitary adenoma with resection, and hypothyroidism. PAST SURGICAL HISTORY: Craniotomy transsphenoidal 2011, cholecystectomy, appendectomy, knee replacement times 3, circumcision in 2011, history of heart catheterization times 2, PTCA times 2, LAD, left circumflex; peripheral vascular disease with stent on his left lower extremity, popliteal area. History of lumbar spinal surgery, pacemaker placement, and cataract surgery. ALLERGIES: None known. FAMILY HISTORY: Mother had hypertension and osteoarthritis. SOCIAL HISTORY: He ____ tobacco. He has had alcohol use in the past. He is and retired. CURRENT MEDICATIONS: Plavix 75 mg p.o. daily, aspirin 81 mg p.o. daily, ferrous sulfate 325 mg a day, Crestor 5 mg Sunday, Sunday and Sunday evening, Betapace 40 mg p.o. b.i.d., levothyroxine 25 mcg p.o. q. a.m., multivitamin 1 daily, Coenzyme Q10 of 200 mg p.o. daily. REVIEW OF SYSTEMS: GENERAL: He said he felt well ____ last evening in rounds 1800 hours. Denies headache. HEENT: No visual change, sinus congestion, sore throat with some trouble with his speech, minimally. CARDIAC: No chest pain or palpitations. GASTROINTESTINAL: No nausea, vomiting, change in stools or blood per rectum. RESPIRATORY: Denies shortness of breath or cough. HISTORY AND PHYSICAL [id number] JOYCELYN ALEXANDER GENITOURINARY: Nocturia once nightly. ENDOCRINE: Denies polyuria or polydipsia. MUSCULOSKELETAL: He has chronic lumbago and knee arthralgias. PSYCHIATRIC: Denies depressed mood. PHYSICAL EXAMINATION: VITAL SIGNS: His temperature is 97.9 with a pulse of 62, respirations are 20, and blood pressure was 167/80 with sat 98% on room air. HEENT: Normocephalic. Eyes are clear with lens implants OU. NECK: Supple, without bruits, masses or JVD. CHEST: Clear without wheeze or rales. HEART: Regular rate and rhythm, II/ aortic murmur. He has a fresh healing left infraclavicular pacemaker site. ABDOMEN: Obese, soft, and nontender. EXTREMITIES: He has scars over both knees from previous surgery with good range of motion. No peripheral edema. INTEGUMENTARY: No rash or itching. PSYCHIATRIC: Denies depress mood. NEUROLOGIC: Oriented to person, place, and time. Cranial nerves intact. Gait is wide based, but normal for him. His speech is clear to my exam at this time. LABORATORY DATA: White count is 6000, H&H of 11 and 35. Chemistry shows potassium of 3.8, BUN and creatinine are 13 and 0.8, INR is 1.03. DIAGNOSTIC DATA: CT of the brain without contrast revealed generalized atrophy. No acute process. Carotid Doppler does not reveal high velocities without evidence of significant flow limiting stenosis. EKG shows paced rhythm. ASSESSMENT: 1. Left hemispheric transient ischemic attack, improving. 2. A recent pacemaker placement for atrial fibrillation, sick sinus syndrome with left atrial enlargement. 3. Recent discontinuation of Plavix and aspirin for surgery. 4. Hypertension. 5. Hyperlipidemia. 6. Coronary artery disease. PLAN: We will schedule for bubble echo. We will also interrogate pacemaker to rule out arrhythmias during time of incident. We will discuss with Dr. Roa from neurology that my impression of the patient may well need to be fully anticoagulated because of his atrial demand pacemaker and high risk for embolic stroke. TRANSINT:[id number] Voice Confirmation ID: [id number] DOCUMENT ID: [id number] HISTORY AND PHYSICAL [id number] JOYCELYN ALEXANDER TIMOTHY MD at 1740 CC: [id number] DICTATION DATE: 01/18/17 1340 PHOTO PRODUCER: 01/18/17 1602 ADM IN [facility] [address] [place] [address]
--- NOTE | 2017-01-18 18:53 | NUR ---
IV DCD CATH INTACT.DISCHARGE INSTRUCTIONS,STATES UNDERSTANDING.LEFT UNIT VIA WHEELCHAIR FOR TRANSPORT HOME
--- NOTE | 2017-01-26 12:24 | EC ---
PATIENT:JOYCELYN ALEXANDER DATE OF SERVICE: 01/18/17 SEX: M MEDICAL RECORD: [id number] DATE OF : 35 LOCATION:D. [id number] AGE OF PATIENT: 81 ADMISSION DATE: 01/17/17 REFERRING PHYSICIAN: INTERPRETING PHYSICIAN: JAYLEN HULL M.D. ECHOCARDIOGRAM REPORT ECHO CHARGES 4 ECHO COMPLETE CLINICAL DIAGNOSIS: LEFT RAMÓN TIA/RECENT PACER/AFIB BUBBLE STUDY TO ASSESS FOR PFO ECHOCARDIOGRAPHIC MEASUREMENTS (adult normal given) AC root (d.<3.7cm) 3.9 LV Septum d (<1.2 cm> 1.8 Valve Excursion 2.1 LV Septum (systole) 1.9 Left Atria (s.<4.0cm> 4.6 LVPW d(<1.2cm) 1.6 RV (d.<2.3cm) 4.5 LVPW (sytole) 1.8 LV diastole(<5.6CM) 6.1 MV E-F(>70mm/sec) LV systole 5.1 LVOT Diameter 1.7 MV exc.(>10mm) Est.ejection fraction (50-75%) Pericardial Effusion N DOPPLER: LVIT A 122 E 90.0 LA RVSP 23 LVOT 147 AOP1/2T Asc. Ao 223 RVOT 105 RA PA 153 AV Gradient Peak 23.65 AV Mean 13.34 AV Area 1.2 MV Gradient Peak 5.36 MV Mean 2.18 MV Area COMMENTS: BUBBLE STUDY Pit Worker Power Shovel: Chrissie LEWIS Rn Paralegal:2 Dr. Hull TAPE# PACS DATE OF SERVICE: 01/18/2017 REFERRING PHYSICIAN: Jaylen Jimenez MD INDICATION: TIA. DESCRIPTION: Left ventricle is mildly dilated. Left ventricular hypertrophy is present. Systolic function is preserved. Estimated ejection fraction is in the order 50% to 55%. Mitral valve is structurally normal. There is trivial ECHOCARDIOGRAM REPORT [id number] JOYCELYN ALEXANDER regurgitation seen. Left atrium is moderately dilated. The aortic valve leaflets are thickened. The peak gradient across the valve is 23 mmHg with mean of 30 mmHg. This corresponds to mild aortic stenosis. Right ventricle is mildly dilated. Tricuspid valve structurally normal. There is mild regurgitation seen. Right atrium is normal size. There is no pericardial effusion seen. A bubble study was performed. There is no evidence of any flow across the septum. IMPRESSION: 1. Mildly dilated left ventricle with preserved ejection of 50% to 55%. 2. Trivial mitral regurgitation. 3. Mild tricuspid regurgitation. 4. Mild aortic stenosis. 5. Normal bubble study with no evidence of any flow across the septum, PFO or ASD. TRANSINT:[id number] Voice Confirmation ID: [id number] DOCUMENT ID: [id number] JAYLEN HULL M.D. at 1224 CC: [id number] DICTATION DATE: 01/19/17727 RECOVERY MANAGER: 01/20/17 0100 DIS IN 01/18/17 [facility] [address] [place] [address]
== END 2017-01-18 18:54 | disposition home or self-care (01) ==
LOC: D.ER 16:39 → D.MS 19:44 → OBSVTIME 19:44 → D.MS 01-18 14:21
PROVIDERS: Emergency Medicine; ADMIT Family Medicine
DX: G45.9 Transient cerebral ischemic attack, unspecified (principal); Z95.0 Presence of cardiac pacemaker; I10 Essential (primary) hypertension; E78.5 Hyperlipidemia, unspecified; I25.10 Atherosclerotic heart disease of native coronary artery without angina pectoris; Z79.02 Long term (current) use of antithrombotics/antiplatelets; I48.0 Paroxysmal atrial fibrillation; M19.90 Unspecified osteoarthritis, unspecified site

== ENCOUNTER → 2017-08-01 15:12 | Outpatient (CLI) | payer MEDICARE, BC ==
[2017-01-18 12:54] VITALS: BMI 36.2
[~2017-08-01 15:12] MED LIST changes: +DIOVAN160 MG PO; +ELIQUIS5 MG PO; +PROTONIX FOR OR40 MG PT
== END | disposition home or self-care (01) ==
LOC: D.CT 15:12
DX: R47.81 Slurred speech (principal); R42 Dizziness and giddiness

== ENCOUNTER 2017-08-03 08:01 | Outpatient (CLI) | payer MEDICARE, BC ==
[~2017-08-03 08:01] MED LIST changes: -DIOVAN160 MG PO; -PROTONIX FOR OR40 MG PT
[2017-08-03 14:27] VITALS: BMI 35.3
--- NOTE | 2017-08-03 17:56 | NUR ---
1750--BLOOD COMPLETE, IV FLUSHING. LAB CALLED TO COME DRAW. NADEGE ESTES
--- NOTE | 2017-08-03 19:06 | NUR ---
185--IV DC'D. DISCHARGE INSTRUCTIONS GIVEN, PT VERBALIZES UNDERSTANDING. PT OFF UNIT VIA WC. NADEGE ESTES
[2017-08-03 19:09] LABS: HEMATOCRIT 34.3 % (42.0-54.0); HEMOGLOBIN 10.7 g/dL (13.5-17.5)
== END 2017-08-03 18:50 | disposition home or self-care (01) ==
LOC: D.OPS 08:01
PROVIDERS: Family Medicine
DX: D64.9 Anemia, unspecified (principal)

== ENCOUNTER 2017-09-11 08:52 | Outpatient (CLI) | payer MEDICARE, BC ==
[~2017-09-11] VITALS: Ht 182.9 cm; Wt 122.7 kg
--- NOTE | ~2017-09-11 | HEMODYNAMI ---
PATIENT:JOYCELYN ALEXANDER MEDICAL RECORD: [id number] : 35 LOCATION:DBRIAN ADMISSION DATE: 09/11/17 Generatedon:09/11/201710:58 Patient name: JOYCELYN ALEXANDER Patient #: [id number] SSN: [id number] : 1935 Date of study: 09/11/2017 Page: Of Hemodynamic Procedure Report Patient Data Patient Demographics Procedure consent was obtained First Name: JOYCELYN Gender: Male Last Name: BENJAMIN : 1935 Patient #: [id number] Age: 82 year(s) Race: SSN: [id number] Additional ID: [id number] Contact details Address: [address] [place] [address] RO[address] State: [place] City: [place] Zip code: [address] Past Medical History History of disease Date Diagnosis Comments CAD PVD Allergies: No known allergies Admission Admission Data Admission Date: 09/11/2017 Admission Time: 8:52 Procedure Procedure Types Cath Procedure Diagnostic Procedure LHC Coronaries only Miscellaneous Procedures Moderate Sedation up to 30 minutes Peripheral Cath Diagnostic Procedure Cath Peripheral Wclfd-Mnwtsyt-Wga-Off Procedure Description Procedure Date Procedure Date: 09/11/2017 Procedure Start Time: 10:37 Procedure End Time: 10:57 Procedure Staff Name Function Nishant Almonte MD Performing Physician Mitali Dempsey RT Monitor Ajit Allison RT Scrub Jessi Brasher RN Nurse Emmy Bui RN Nurse Procedure Data Cath Procedure Fluoroscopy Diagnostic fluoroscopy Total fluoroscopy Time: 3.1 time: 3.1 min min Diagnostic fluoroscopy Total fluoroscopy dose: dose: 1095 mGy 1095 mGy Contrast Material Contrast Material Type Amount (ml) Isovue 300 93 Entry Location Entry Primary Successful Side Size Upsize Upsize Entry Closure Succes sful Closure Location (Fr) 1 (Fr) 2 (Fr) Remarks Device Remarks Femoral Right 5 Fr Exoseal artery Estimated blood loss: 5 ml Diagnostic catheters Device Type Used For End Catheter Placement Cordis 5Fr Pigtail Abdominal Catheter (MP) aortogram with runoff Cordis 5Fr Pigtail LV Angiography Catheter (MP) Cordis 5Fr JL 4.0 Left Coronary Catheter (MP) Angiography Diagnostic Infinity 5Fr Left Coronary JL 6 catheter Angiography Cordis 5Fr 3DRC Catheter Right Coronary (MP) Angiography Procedure Complications No complications Procedure Medications Medication Administration Route Dosage 0.9% NaCl I.V. 100 ml/hr Oxygen NC 2 l/min Lidocaine 2% added to field 20 Heparin Flush Bag added to field 2 bags (1000units/500ml NS) Versed I.V. 2 mg Fentanyl I.V. 100 mcg Versed I.V. 1 mg Fentanyl I.V. 50 mcg Hemodynamics Rest Heart Rate: 61 (bpm) Snapshots Pre Cath Intra NCS Post Cath Vital Signs Time Heart Resp SPO2 etCO2 NIBP (mmHg) Rhythm Pain Sedation Rate (ipm) (%) (mmHg) Status Level (bpm) 10:25:50 76 19 98 23.3 No Cuff NSR 0 (11) 10(A) , No pain 10:30:49 60 19 97 12.7 Measuring NSR 0 (11) 10(A) , No pain 10:31:24 60 15 96 21.8 172/90(135) NSR 0 (11) 10(A) , No pain 10:36:11 60 14 96 23.3 155/86(129) NSR 0 (11) 9(A) , No pain 10:41:09 60 14 98 17.3 Measuring NSR 0 (11) 9(A) , No pain 10:41:53 60 14 98 13.5 178/84(141) NSR 0 (11) 9(A) , No pain 10:46:41 60 14 96 0 163/87(132) NSR 0 (11) 10(A) , No pain 10:51:34 67 14 96 33.8 168/85(139) NSR 0 (11) 9(A) , No pain 10:56:31 75 16 98 37.6 176/97(147) NSR 0 (11) 10(A) , No pain Medications Time Medication Route Dose Verified Delivered Reason Notes E ffectiveness by by 10:34:55 0.9% NaCl I.V. 100ml/hr Nishant Bowen used for Gage Brasher cut out and marking machine operator 10:36:36 Oxygen NC 2 l/min Nishant Bowen for low 02 Gage Brasher RN sats 10:36:56 Lidocaine 2% added 20ml Nishant Dillard for local to vial Gage Almonte MD anesthetic field 10:37:09 Heparin Flush added 2 bags Nishant Dillard used for Bag to Gage Almonte MD procedure (1000units/500ml field NS) 10:37:24 Versed I.V. 2 mg Nishant Bowen for Gage Brasher RN sedation 10:37:36 Fentanyl I.V. 100 mcg Nishant Bowen for Gage Brasher RN sedation 10:44:02 Versed I.V. 1 mg Nishant Bowen for Gage Brasher RN sedation 10:44:07 Fentanyl I.V. 50 mcg Nishant Bowen for Gage Brasher RN sedation Procedure Log Time Note 10:09:54 Time tracking: Regular hours 10:09:59 Plan of Care:Hemodynamics will remain stable., Cardiac rhythm will remain stable., Comfort level will be maintained., Respiratory function will remain adequate., Patient/ family verbilizes understanding of procedure., Procedure tolerated without complication., Recovers from procedure without complications.. 10:10:23 Mitali Counts RT(R) sent for patient. Start room use. 10:11:46 Use device set Femoral Dx 10:11:48 Acist Syringe opened to sterile field. 10:11:49 Bag Decanter opened to sterile field. 10:11:50 Medline Cath Pack opened to sterile field. 10:11:50 Terumo 5Fr [place] Sheath opened to sterile field. 10:11:51 St Jose 260cm J .035 wire opened to sterile field. 10:11:52 Acist Hand Control opened to sterile field. 10:11:53 Acist Manifold opened to sterile field. 10:11:54 Diagnostic Infinity 5Fr Multipack catheter opened to sterile field. 10:11:57 Tegaderm 4 x 4 opened to sterile field. 10:19:31 Patient received from Pre/Post Procedure Room to CCL 1 Alert and oriented. Tansferred to table in Supine position. 10:19:32 Warm blankets applied, and bianca hugger turned on for patient comfort. 10:19:33 Correct patient and procedure confirmed by team. 10:19:38 Signed procedure consent form obtained from patient. 10:19:40 ECG and BP/O2 sat monitors applied to patient. 10:19:48 H&P Date Dictated: 09/05/2017 Within 30 days and on chart., H&P Addendum completed by physician on day of procedure. (MUST COMPLETE FOR ALL OUTPATIENTS). 10:19:49 Pre-procedure instructions explained to patient. 10:19:50 Pre-op teaching completed and patient verbalized understanding. 10:19:51 Family in waiting room. 10:19:53 Patient NPO since Midnight. 10:24:59 Vital chart was started 10:30:20 Baseline sample Acquired. 10:30:22 Baseline sample Acquired. 10:30:25 Rhythm: paced 10:30:27 Full Disclosure recording started 10:30:30 Is the patient allergic to Iodine/contrast media? No. 10:30:33 Is patient on blood thinner?No 10:30:35 Patient diabetic? No. 10:30:46 Previous problem with sedation/anesthesia? No ? 10:30:47 Snore? Yes 10:30:48 Sleep apnea? Yes 10:30:49 Deviated septum? No 10:30:50 Opens mouth fully? Yes 10:30:51 Sticks out tongue? Yes 10:30:53 Airway obstruction? No ? 10:30:56 Dentures? No ? 10:30:59 Pre procedure: right dorsailis pedis pulse 1+ Palpable, but thready & weak; easily obliterated 10:31:03 Patient pain scale 0/10 ?. 10:31:08 IV patent on arrival in left hand with 0.9% NaCl at KVO. 10:31:13 Lab results completed and on chart. 10:31:17 Bilateral groins area was prepped with chlora-prep and draped in sterile fashion 10:31:18 Alarms reviewed by R. N. 10:31:18 Sharps counted by scrub and verified by R.N. 10:32:28 Final Timeout: patient, procedure, and site verified with staff and physician. All members of the team are in agreement. 10:32:30 Right groin site verified by team. 10:32:33 Physical assessment completed. ASA score P 2 - A patient with mild systemic disease as per Nishant Almonte MD. 10:32:35 Sedation plan: IV Moderate Sedation Medication:Versed, Fentanyl 10:34:55 0.9% NaCl 100ml/hr I.V. was administered by Jessi Brasher RN; used for procedure; 10:35:42 Zero performed for pressure channel P1 10:35:47 Zero performed for pressure channel P1 10:35:51 Zero performed for pressure channel P1 10:35:59 Procedure started. 10:36:36 Oxygen 2 l/min NC was administered by Jessi Brasher RN; for low 02 sats; 10:36:56 Lidocaine 2% 20ml vial added to field was administered by Nishant Almonte MD; for local anesthetic; 10:37:09 Heparin Flush Bag (1000units/500ml NS) 2 bags added to field was administered by Nishant Almonte MD; used for procedure; 10:37:24 Versed 2 mg I.V. was administered by Jessi Brasher RN; for sedation; 10:37:27 Local anesthetic to right femoral artery with Lidocaine 2% by Nishant Almonte MD.INITIAL ACCESS ONLY 10:37:36 Fentanyl 100 mcg I.V. was administered by Jessi Brasher RN; for sedation; 10:43:16 A 5 Fr sheath was inserted into the Right Femoral artery 10:44:02 Versed 1 mg I.V. was administered by Jessi Brasher RN; for sedation; 10:44:07 Fentanyl 50 mcg I.V. was administered by Jessi Brasher RN; for sedation; 10:45:11 A Cordis 5Fr Pigtail Catheter (MP) was advanced over the wire and used for Abdominal aortogram with runoff. 10:45:18 A Cordis 5Fr Pigtail Catheter (MP) was advanced over the wire and used for LV Angiography.removed, unable to cross valve. 10:47:16 Procedure type changed to Cath procedure, Diagnostic procedure, LHC, Coronaries only, Miscellaneous Procedures, Moderate Sedation up to 30 minutes, Peripheral Cath Diagnostic Procedure, Cath Peripheral, Vjlmx-Buezzss-Zjg-Off 10:48:03 A Cordis 5Fr JL 4.0 Catheter (MP) was advanced over the wire and used for Left Coronary Angiography.removed, unable to cannulate. 10:48:35 A Diagnostic Infinity 5Fr JL 6 catheter was advanced over the wire and used for Left Coronary Angiography. 10:49:45 Catheter removed. 10:50:12 A Cordis 5Fr 3DRC Catheter (MP) was advanced over the wire and used for Right Coronary Angiography. 10:52:02 Catheter removed. 10:52:10 Sheath removed intact; hemostasis achieved with Exoseal to the Right Femoral artery. 10:52:12 Procedure ended.(Physican Out) 10:52:25 Fluoroscopy time 03.10 minutes. 10:52:28 Flurop Dose total: 1095 10:52:28 Fluoroscopy dose: 1095 mGy 10:52:32 Contrast amount:Isovue 300 93ml. 10:52:33 Sharps counted by scrub and verified by R.N. 10:52:35 Insertion/operative site no bleeding no hematoma. 10:52:37 Post-op/insertion site Right Femoral artery dressed using a 4 x 4 and Tegaderm. 10:52:40 Post right femoral artery:stable, clean and dry 10:52:42 Post Procedure Pulses reassessed and unchanged 10:52:45 Post-procedure physical assessment completed. ASA score P 2 - A patient with mild systemic disease as per Nishant Almonte MD. 10:52:46 Post procedure rhythm: unchanged. 10:52:49 Estimated blood loss: 5 ml 10:52:52 Post procedure instruction explained to patient.Patient verbalizes understanding. 10:52:53 Patient needs reinforcement of post procedure teaching. 10:52:58 Procedure Complication : No complications 10:53:00 See physician's report for complete and final results. 10:55:30 Cordis 5Fr Exoseal opened to sterile field. 10:56:13 Procedure and supply charges have been captured, reviewed, submitted and are correct. 10:57:44 Vital chart was stopped 10:57:46 Report given to Pre/Post Procedure Room. 10:57:49 Patient transfered to Pre/Post Procedure Room with Stretcher. 10:57:57 Procedure ended. 10:57:57 Full Disclosure recording stopped 10:58:00 End room use (Document Last) Device Usage Item Name Manufacture Quantity Catalog Hospital Part Current Minimal Lo t# / Number Charge Number Stock Stock Serial# Code [facility] 1 [id number] [id number] [id number] 465357 20 Syringe [employer] Bag Microtek 1 [id number] 12464 165083 5 [employer] Medline Cardinal 1 [id number] 570708 34973 318397 5 WinView Terumo 5Fr Terumo 1 [id number] 186263 931945 [address] [place] [address] Jose 1 [id number] 013645 610024 153728 30 260cm J .035 wire Acist Hand Acist 1 22430 374806 166367 896524 5 Control [employer] Inc Acist Acist 1 67176 649573 962930 726233 5 Manifold [employer] Diagnostic Cardinal 1 [id number] 830424 06023 452882 30 Sedia Biosciences[employer] Health 5Fr Multipack catheter Tegaderm 4 3M 1 1626W 056532 744094 145771 5 x 4 Cordis 5Fr Cardinal 1 478536 5 Pigtail Health Catheter (MP) Cordis 5Fr Cardinal 1 220023 5 JL 4.0 Health Catheter (MP) Diagnostic Cardinal 1 [id number] 591783 322591 798583 5 Infinity Health 5Fr JL 6 catheter Cordis 5Fr Cardinal 1 564235 5 3DRC Health Catheter (MP) Cordis 5Fr Cardinal 1 [id number] 326222 415714 829668 10 [facility] [email or web address] Signature Audit Callahan Stage Time Signature Unsigned Intra-Procedure 09/11/2017 Mitali 10:58:14 AM Counts RT(R) Signatures Monitor : Mitali Signature : Counts RT Date : Time : [place] [id number] [place] [address]
[2017-09-11] MEDS ORDERED: PROTONIX FOR OR40 MG PT (09:10)
[2017-09-11] MEDS ORDERED: DIOVAN160 MG PO (09:10)
[2017-09-11 09:17] VITALS: BP 149/78; Ht 182.9 cm; Wt 122.7 kg
[2017-09-11 09:40] LABS: BASOPHILS 0.8 % (0-2); EOSINOPHILS 6.2 % (0-7); HEMATOCRIT 38.8 % (42.0-54.0); HEMOGLOBIN 12.3 g/dL (13.5-17.5); IMMATURE GRANULOCYTES 0.2 % (0-5); LYMPHOCYTES 33.5 % (15-50); MCH 27.5 pg (26.0-34.0); MCHC 31.7 g/dL (31.0-37.0); MCV 86.8 fL (80.0-100.0); MEAN PLATELET VOLUME 9.3 fL (7.4-10.4); MONOCYTES 9.1 % (2-11); NEUTROPHILS 50.2 % (40-80); PLATELET COUNT 191 10x3/uL (130-400); RBC 4.47 10x6/uL (4.20-6.10); RDW 19.6 % (11.5-14.5)
[2017-09-11 09:55] LABS: CALC OSMOLALITY 274 mosm/kg (275-300); CALCIUM 8.8 mg/dL (8.5-10.1); CARBON DIOXIDE 25.4 mmol/L (21.0-32.0); CHLORIDE - SERUM 104 mmol/L (98-107); CREATININE - SERUM 0.8 mg/dL (0.6-1.3); GLUCOSE 101 mg/dL (74-106); SODIUM 138 mmol/L (136-145); UREA NITROGEN 11 mg/dL (7-18); eGFR NON AFRICAN AMERICAN > 90 mL/min (90-120)
--- NOTE | 2017-09-11 11:22 | NUR ---
1110 RECEIVED PT FROM ITALIAN TEACHER. PT IS DROWSY. DENIES ANY C/O. RR EVEN AND UNLABORED ON O2 AT 2 LPM VIA NC. DRESSING TO RIGHT GROIN IS CDI, AREA IS SOFT AND NONTENDER. PEDAL PULSES PALPABLE, FEET WARM, BILAT. PACED RHYTHM WITH RATE OF 62. BP IS 152/74. FAMILY AT BEDSIDE, CALL LIGHT IN REACH.
--- NOTE | 2017-09-11 11:25 | NUR ---
1125 PT RESTING WITH EYES CLOSED, AWAKENS EASILY, DENIES ANY C/O. DRESSING RIGHT GROIN IS CDI, AREA SOFT AND NONTENDER. PEDAL PULSES PALPABLE. FAMILY AT BEDSIDE. PACED RHYTHM. DENIES ANY C/O CHEST DISCOMFORT. WILL CONTINUE TO MONITOR.
--- NOTE | 2017-09-11 11:44 | NUR ---
DRESSING CDI, AREA SOFT AND NONTENDER. FAMILY AT BEDSIDE. RR EVEN AND NONLABORED. PEDAL PULSES PALPABLE. PT DENIES ANY C/O AT THIS TIME.
--- NOTE | 2017-09-11 12:15 | NUR ---
1215 PT DENIES ANY C/O. RIGHT GROIN DRESSING IS CDI,. AREA SOFT AND NONTENDER. PEDAL PULSES PALPABLE. FAMILY AT BEDSIDE. VSS. PACED RHYTHM, DENIES ANY C/O CHEST DISCOMFORT.
--- NOTE | 2017-09-11 13:05 | NUR ---
1245 PT HAS VOIDED QS USING URINAL. DENIES ANY C/O. PO FLUIDS SERVED. DRESSING RIGHT GROIN IS CDI, PEDAL PULSES PALPABLE. FAMILY AT BEDSIDE, CALL LIGHT IN REACH.
--- NOTE | 2017-09-11 13:15 | NUR ---
1315 PT DENIES ANY C/O. DRESSING CDI, VSS. PEDAL PULSES PALPABLE, FAMILY AT BEDSIDE. MICAH PO FLUIDS WITH NO C/OO NAUSEA. DECLINES SANDWICH STATES HE WANTS TO HAVE LUNCH WITH UPON DC.
--- NOTE | 2017-09-11 13:55 | NUR ---
1330 HOB ELEVATED, PT DENIES ANY C/O..
--- NOTE | 2017-09-11 13:56 | NUR ---
0024 DC INSTRUCTIONS HAVE BEEN REVIEWED AND PT VERBALIZES UNDERSTANDING. IV DC'D WITH CATH INTACT. PT DRESSING FOR DC TO HOME.
--- NOTE | 2017-09-11 14:16 | NUR ---
1400 PT ESCORTED TO PRIVATE AUTO VIA WC BY NURSE WITH DRIVING HIM HOME. PT DENIES ANY C/O UPON DC TO HOME.
--- NOTE | 2017-09-25 12:17 | OP ---
PATIENT NAME: JOYCELYN ALEXANDER MEDICAL RECORD: [id number] :35 LOCATION:D.CAT ADMISSION DATE: SURGEON: JASPER BARRAGAN MD DATE OF OPERATION: 09/11/2017 PROCEDURES: 1. Left heart catheterization. 2. Selective coronary angiography. 3. Left ventriculogram. 4. Aortofemoral runoff. 5. Abdominal aortography. INDICATION: Angina, claudication, coronary artery disease, and peripheral vascular disease. PROCEDURE IN DETAIL: After informed consent was obtained and after a detailed explanation of the risks, benefits as well as alternative therapies, the patient elected to proceed with angiogram and heart catheterization. The right femoral area was prepped and draped in normal sterile fashion. The right femoral artery was cannulated via modified Seldinger technique with placement of 5-Greek sheath. All catheters exchanged through this sheath. FINDINGS: Left ventriculogram was not performed due to inability to cross the valve. SELECTIVE CORONARY ANGIOGRAPHY: 1. Left main has previously placed stent. This is widely patent with no significant restenosis. 2. Left anterior descending has previously placed stents, these are widely patent with no significant restenosis. No disease elsewise throughout the LAD or its branches. 3. Left circumflex has mild irregularities, no flow-limiting stenosis, no change from previous angiography. 4. Right coronary artery has moderate irregularities, but no flow-limiting stenosis, no change from previous angiography. 5. Abdominal aortography was performed. The catheter was pulled down for aortofemoral runoff. Abdominal aortography reveals no significant abdominal aortic disease. No dissection or aneurysm formation. 6. RIGHT LEG: A. Iliac: The common internal and external iliacs have moderate irregularities, but no flow-limiting stenosis. B. Femoral system: The common, superficial, and deep femoral have moderate irregularities, but no flow-limiting stenosis. C. Popliteal has a previously placed stent. This is widely patent. Infrapopliteal vessels are patent giving good 3-vessel runoff to the foot. 7. LEFT LEG: A. Iliac: The common internal and external iliacs have moderate irregularities, but no flow-limiting stenosis. B. Femoral system: The common, superficial, and deep femoral have moderate irregularities, but no flow-limiting stenosis. C. Popliteal and infrapopliteal vessels are widely patent with good 3-vessel runoff to the foot. OVERALL IMPRESSION: No significant restenosis of any of the cardiac stents. No new disease elsewise. No significant restenosis of the peripheral stent. No OPERATIVE REPORT [id number] JOYCELYN ALEXANDER disease elsewise. Continue medical management of the coronary artery disease and cardiac risk factors. TRANSINT:[id number] Voice Confirmation ID: [id number] DOCUMENT ID: [id number] JASPER BARRAGAN MD at 1217 CC: [id number] DICTATION DATE: 09/11/17 1107 ICT ANALYST: 09/11/17 1346 DEP CLI 09/11/17 [id number] [place] [address]
== END 2017-09-11 14:00 | disposition home or self-care (01) ==
LOC: D.CATH 08:52
PROVIDERS: Internal Medicine Interventional Cardiology
DX: I25.119 Atherosclerotic heart disease of native coronary artery with unspecified angina pectoris (principal); Z95.5 Presence of coronary angioplasty implant and graft; I70.219 Atherosclerosis of native arteries of extremities with intermittent claudication, unspecified extremity; Z01.812 Encounter for preprocedural laboratory examination

== ENCOUNTER 2018-09-23 11:18 | Inpatient (IN) | payer MEDICARE, BC ==
[~2018-09-23] VITALS: Ht 182.9 cm; Wt 120.2 kg
--- NOTE | ~2018-09-23 | HP ---
PATIENT: JOYCELYN ALEXANDER MEDICAL RECORD: [id number] ACCOUNT: [id number] LOCATION:[address] : 35 ADMISSION DATE: 09/23/18 PCP: STEVE KERR MD HISTORY AND PHYSICAL EXAMINATION REASON FOR ADMISSION: Symptomatic anemia with melena. HISTORY OF PRESENT ILLNESS: The patient is an 83-year-old male with history of paroxysmal atrial fibrillation with a CHADS score of 4. He, a year ago, developed anemia with heme-positive stool while on Eliquis for atrial fibrillation. His stools were heme positive, but he deferred upper and lower GI evaluation. As he has been in sinus rhythm for several months, Dr. Almonte elected to stop his Eliquis and his anemia resolved post-transfusion. 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 He saw me a few days ago and appeared somewhat pale. His hemoglobin is 8.5. He denied melena at that time. His blood pressure was 110/60. His Cozaar dose was lowered and was rechecked this morning, and he admitted to having some dark stools for several weeks and he had not told his . Stool was grossly heme positive. He has now been admitted for transfusion and GI consultation. His Eliquis was stopped over the weekend. 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 SURGICAL HISTORY: Transsphenoidal craniotomy for benign pituitary adenoma in 2011; cholecystectomy; appendectomy; knee replacement times 3; circumcision in 2011; history of cardiac catheterization with PTCA times 2; LAD, left circumflex; peripheral vascular disease with stent in his left lower extremity and popliteal area remotely; history of lumbar spinal surgery for stenosis; pacemaker placement; cataract surgery, both eyes; right total knee replacement in 1997, he had a left total knee in 2003; appendectomy; tonsillectomy. ALLERGIES: None mentioned. SOCIAL HISTORY: Nonsmoker, moderate alcohol drinker in the past. He is . He was an avid golfer who has had to quit golfing due to his disabilities. FAMILY HISTORY: Mother had hypertension, osteoarthritis. Paternal grandfather and grandmother both had hypertension. HOME MEDICATIONS: Sotalol 80 mg tablets one-half tab b.i.d.; Eliquis 5 mg p.o. b.i.d., recently discontinued; aspirin 81 mg daily; losartan 100 mg p.o. daily; ferrous sulfate 325 mg p.o. daily; levothyroxine sodium 25 mcg p.o. every morning and before a meal; pantoprazole 40 mg p.o. daily. REVIEW OF SYSTEMS: GENERAL: Marked fatigue for several weeks. Poor appetite. No recent fever. HEENT: No recent visual change, sinus congestion, sore throat. Does have HISTORY AND PHYSICAL [id number] JOYCELYN ALEXANDERble hearing. RESPIRATORY: Mild shortness of breath on exertion. No cough, sputum production, hemoptysis. CARDIAC: No recent exertional chest pain, claudication, or edema. Mild HERRERA. GENITOURINARY: Nocturia once nightly. GASTROINTESTINAL: Denies dyspepsia, vomiting, but admits to dark stools for several weeks. ENDOCRINE: Denies polyuria, polydipsia, heat or cold intolerance. NEUROLOGIC: No history of stroke. Had remote TIA in 2017 post-pacemaker placement without residual. Denies headaches. MUSCULOSKELETAL: Chronic lumbago and neurogenic claudication in his legs. INTEGUMENT: No rash or itching, except he has been very pale recently. PSYCHIATRIC: Denies depressed mood. PHYSICAL EXAMINATION: VITAL SIGNS: Height 72 inches, heart rate is 90 and regular, blood pressure is 120/60. He is afebrile. HEENT: Normocephalic. Eyes are clear. Palpebral conjunctivae are pale. Mouth unremarkable. NECK: Supple, without bruits or masses. CHEST: Clear with distant breath sounds. HEART: Regular rate and rhythm without murmur. ABDOMEN: Obese, soft, nontender. RECTAL: Grossly black heme-positive stool. EXTREMITIES: He has healed total knee replacement scars bilaterally. Knee has fair range of motion. No effusion or heat. He has 1+ mild pedal edema bilaterally. NEUROLOGICAL: Oriented to person, place, and time. Cranial nerves are grossly intact. Gait is normal. LABORATORY DATA: BMP is normal. H&H is 8.5 and 24 respectively. ASSESSMENT: 1. Symptomatic anemia. 2. Probable upper gastrointestinal bleed. 3. Paroxysmal atrial fibrillation. 4. Eliquis therapy discontinued. 5. History of hypertension, now orthostatically hypotensive. 6. Coronary artery disease, clinically asymptomatic. 7. Sick sinus syndrome with pacemaker. 8. History of diverticulosis and diverticulitis. 9. Gastroesophageal reflux disease. 10. Lumbar disc disease. PLAN: The patient's anticoagulants were discontinued 3 days ago. His H&H has not dropped further. He is being admitted for transfusion, GI consultation, IV Protonix. Further workup pending clinical course. TRANSINT:[id number] Voice Confirmation ID: [id number] DOCUMENT ID: [id number] HISTORY AND PHYSICAL [id number] JOYCELYN ALEXANDER TIMOTHY MD at 1437 CC: [id number] DICTATION DATE: 09/23/18 1302 EAP CONSULTANT: 09/23/18 1420 ADM [id number] [place] [address]
[~2018-09-23 11:18] MED LIST changes: +DIOVAN160 MG PO; +PROTONIX FOR OR40 MG PT
[2018-09-23 12:08] VITALS: BP 139/69
[2018-09-23 14:35] LABS: BASOPHILS 0.7 % (0-2); EOSINOPHILS 4.1 % (0-7); HEMATOCRIT 26.1 % (42.0-54.0); HEMOGLOBIN 7.9 g/dL (13.5-17.5); IMMATURE GRANULOCYTES 0.2 % (0-5); MCH 25.4 pg (26.0-34.0); MCHC 30.3 g/dL (31.0-37.0); MCV 83.9 fL (80.0-100.0); MEAN PLATELET VOLUME 9.3 fL (7.4-10.4); MONOCYTES 8.4 % (2-11); NEUTROPHILS 57.6 % (40-80); RBC 3.11 10x6/uL (4.20-6.10); RDW 15.2 % (11.5-14.5); WBC 5.4 10x3/uL (4.8-10.8)
[2018-09-23 14:36] LABS: CALC OSMOLALITY 276 mosm/kg (275-300); CALCIUM 8.3 mg/dL (8.5-10.1); CARBON DIOXIDE 25.2 mmol/L (21.0-32.0); CHLORIDE - SERUM 104 mmol/L (98-107); CREATININE - SERUM 0.8 mg/dL (0.6-1.3); GLUCOSE 106 mg/dL (74-106); INR 1.19 (0.85-1.17); PLATELET COUNT 231 10x3/uL (130-400); POTASSIUM - SERUM 4.2 mmol/L (3.5-5.1); PROTIME 14.6 SECONDS (11.6-15.0); SODIUM 139 mmol/L (136-145); UREA NITROGEN 11 mg/dL (7-18); eGFR NON AFRICAN AMERICAN > 90 mL/min (90-120)
[2018-09-23 14:37] LABS: APTT 36.9 SECONDS (22.8-39.4)
[2018-09-23 20:37] VITALS: BP 127/89
[2018-09-23 22:30] VITALS: BP 115/91
[2018-09-23 22:45] VITALS: BP 131/69
[2018-09-24] VITALS (7 sets, daily range): BP systolic 111–131; BP diastolic 54–77; Ht 182.9 cm; Wt 120.2 kg
[2018-09-24 05:02] LABS: BASOPHILS 0.5 % (0-2); EOSINOPHILS 4.5 % (0-7); IMMATURE GRANULOCYTES 0.2 % (0-5); LYMPHOCYTES 30.6 % (15-50); MCH 26.3 pg (26.0-34.0); MCHC 31.3 g/dL (31.0-37.0); MCV 83.8 fL (80.0-100.0); MEAN PLATELET VOLUME 9.2 fL (7.4-10.4); MONOCYTES 8.7 % (2-11); NEUTROPHILS 55.5 % (40-80); PLATELET COUNT 220 10x3/uL (130-400); RDW 14.9 % (11.5-14.5); WBC 6.2 10x3/uL (4.8-10.8)
[2018-09-24 05:09] LABS: HEMATOCRIT 31.6 % (42.0-54.0); HEMOGLOBIN 9.9 g/dL (13.5-17.5); RBC 3.77 10x6/uL (4.20-6.10)
[2018-09-24 05:19] LABS: ALBUMIN 3.2 g/dL (3.4-5.0); ALKALINE PHOSPHATASE 58 U/L (46-116); ALT (SGPT) 17 U/L (10-68); BILIRUBIN - TOTAL 0.72 mg/dL (0.2-1.3); CALC OSMOLALITY 276 mosm/kg (275-300); CALCIUM 8.2 mg/dL (8.5-10.1); CARBON DIOXIDE 26.8 mmol/L (21.0-32.0); CHLORIDE - SERUM 105 mmol/L (98-107); CREATININE - SERUM 0.8 mg/dL (0.6-1.3); GLUCOSE 99 mg/dL (74-106); PROTEIN - SERUM 6.9 g/dL (6.4-8.2); SODIUM 139 mmol/L (136-145); UREA NITROGEN 9 mg/dL (7-18); eGFR NON AFRICAN AMERICAN > 90 mL/min (90-120)
[2018-09-24 05:44] LABS: INR 1.1 (0.85-1.17); PROTIME 13.7 SECONDS (11.6-15.0)
[2018-09-24 05:45] LABS: APTT 35.9 SECONDS (22.8-39.4)
[2018-09-25] VITALS: BP 119/63
[2018-09-25 05:16] VITALS: BP 112/61
[2018-09-25 06:14] LABS: BASOPHILS 0.5 % (0-2); EOSINOPHILS 4.4 % (0-7); HEMATOCRIT 33.6 % (42.0-54.0); HEMOGLOBIN 10.7 g/dL (13.5-17.5); IMMATURE GRANULOCYTES 0.2 % (0-5); LYMPHOCYTES 28.5 % (15-50); MCH 26.4 pg (26.0-34.0); MCHC 31.8 g/dL (31.0-37.0); MEAN PLATELET VOLUME 9.3 fL (7.4-10.4); MONOCYTES 9.6 % (2-11); NEUTROPHILS 56.8 % (40-80); PLATELET COUNT 225 10x3/uL (130-400); RBC 4.05 10x6/uL (4.20-6.10); WBC 6.2 10x3/uL (4.8-10.8)
[2018-09-25 06:21] LABS: CALC OSMOLALITY 279 mosm/kg (275-300); CALCIUM 8.2 mg/dL (8.5-10.1); CHLORIDE - SERUM 107 mmol/L (98-107); CREATININE - SERUM 0.8 mg/dL (0.6-1.3); GLUCOSE 90 mg/dL (74-106); POTASSIUM - SERUM 3.7 mmol/L (3.5-5.1); SODIUM 141 mmol/L (136-145); UREA NITROGEN 11 mg/dL (7-18); eGFR NON AFRICAN AMERICAN > 90 mL/min (90-120)
[2018-09-25 07:58] VITALS: BP 136/70
[2018-09-25 11:37] VITALS: BP 128/75
[2018-09-25 16:50] VITALS: BP 126/86
[2018-09-25 20:24] VITALS: BP 126/54
[2018-09-26 00:58] VITALS: BP 115/53
[2018-09-26 04:00] VITALS: BP 134/73
[2018-09-26 05:48] LABS: BASOPHILS 0.5 % (0-2); EOSINOPHILS 4.5 % (0-7); HEMOGLOBIN 10.5 g/dL (13.5-17.5); IMMATURE GRANULOCYTES 0.2 % (0-5); LYMPHOCYTES 27.2 % (15-50); MCH 26.3 pg (26.0-34.0); MCHC 31.8 g/dL (31.0-37.0); MCV 82.7 fL (80.0-100.0); MEAN PLATELET VOLUME 9.3 fL (7.4-10.4); NEUTROPHILS 58.6 % (40-80); PLATELET COUNT 198 10x3/uL (130-400); RBC 3.99 10x6/uL (4.20-6.10); WBC 6.2 10x3/uL (4.8-10.8)
[2018-09-26 06:36] LABS: CALC OSMOLALITY 276 mosm/kg (275-300); CALCIUM 8.7 mg/dL (8.5-10.1); CARBON DIOXIDE 23.9 mmol/L (21.0-32.0); CHLORIDE - SERUM 104 mmol/L (98-107); CREATININE - SERUM 0.8 mg/dL (0.6-1.3); GLUCOSE 95 mg/dL (74-106); POTASSIUM - SERUM 3.4 mmol/L (3.5-5.1); SODIUM 139 mmol/L (136-145); UREA NITROGEN 11 mg/dL (7-18); eGFR NON AFRICAN AMERICAN > 90 mL/min (90-120)
[2018-09-26] MEDS ORDERED: TYLENOL W/CODEI1 TAB PO (12:59)
== END 2018-09-26 14:15 | disposition home or self-care (01) | DRG 379 ==
LOC: D.M3 11:18
PROVIDERS: Family Medicine; Internal Medicine Gastroenterology
PROC: 0DB68ZX Excision of Stomach, Via Natural or Artificial Opening Endoscopic, Diagnostic (ICD-10-PCS; principal; 2018-09-24 16:00)
PROC: 0DJD8ZZ Inspection of Lower Intestinal Tract, Via Natural or Artificial Opening Endoscopic (ICD-10-PCS; 2018-09-26)
DX: K55.21 Angiodysplasia of colon with hemorrhage (principal); D64.9 Anemia, unspecified; I48.0 Paroxysmal atrial fibrillation; I10 Essential (primary) hypertension; I25.10 Atherosclerotic heart disease of native coronary artery without angina pectoris; K57.90 Diverticulosis of intestine, part unspecified, without perforation or abscess without bleeding; K21.9 Gastro-esophageal reflux disease without esophagitis; E66.9 Obesity, unspecified; E87.6 Hypokalemia; K64.8 Other hemorrhoids; I95.9 Hypotension, unspecified; Z95.0 Presence of cardiac pacemaker; Z86.73 Personal history of transient ischemic attack (TIA), and cerebral infarction without residual deficits

== ENCOUNTER 2018-10-21 20:35 | Emergency (ER) | payer MEDICARE, BC ==
[~2018-10-21] VITALS: Ht 182.9 cm; Wt 120.5 kg
[~2018-10-21 20:35] MED LIST changes: +TYLENOL W/CODEI1 TAB PO
[2018-10-21 20:49] VITALS: Ht 182.9 cm; Wt 120.5 kg
[2018-10-21 21:51] LABS: BASOPHILS 0.6 % (0-2); EOSINOPHILS 4.6 % (0-7); HEMATOCRIT 30.5 % (42.0-54.0); HEMOGLOBIN 9.4 g/dL (13.5-17.5); IMMATURE GRANULOCYTES 0.2 % (0-5); LYMPHOCYTES 39.8 % (15-50); MCH 25.1 pg (26.0-34.0); MCHC 30.8 g/dL (31.0-37.0); MCV 81.6 fL (80.0-100.0); MEAN PLATELET VOLUME 8.9 fL (7.4-10.4); MONOCYTES 6.5 % (2-11); NEUTROPHILS 48.3 % (40-80); PLATELET COUNT 185 10x3/uL (130-400); RBC 3.74 10x6/uL (4.20-6.10); RDW 15.9 % (11.5-14.5); WBC 5.3 10x3/uL (4.8-10.8)
[2018-10-21 22:03] LABS: ALBUMIN 3.2 g/dL (3.4-5.0); ALKALINE PHOSPHATASE 58 U/L (46-116); ALT (SGPT) 20 U/L (10-68); BILIRUBIN - TOTAL 0.29 mg/dL (0.2-1.3); CALC OSMOLALITY 282 mosm/kg (275-300); CALCIUM 8.4 mg/dL (8.5-10.1); CARBON DIOXIDE 24.1 mmol/L (21.0-32.0); CHLORIDE - SERUM 106 mmol/L (98-107); CREATININE - SERUM 0.8 mg/dL (0.6-1.3); GLUCOSE 101 mg/dL (74-106); POTASSIUM - SERUM 4.1 mmol/L (3.5-5.1); PROTEIN - SERUM 6.6 g/dL (6.4-8.2); SODIUM 141 mmol/L (136-145); UREA NITROGEN 17 mg/dL (7-18); eGFR NON AFRICAN AMERICAN > 90 mL/min (90-120)
[2018-10-21 22:15] LABS: APTT 34.7 SECONDS (22.8-39.4); CKMB 2.1 U/L (0.0-3.6); CREATINE KINASE 200 UL (21-232); INR 1.08 (0.85-1.17); PRO BNP 89 pg/mL (0-450); PROTIME 13.5 SECONDS (11.6-15.0); TROPONIN-I < 0.017 ng/mL (0.000-0.060)
[2018-10-21 23:25] VITALS: BP 127/56
== END 2018-10-21 23:25 | disposition home or self-care (01) ==
LOC: D.ER 20:35
PROVIDERS: Family Medicine
DX: D64.9 Anemia, unspecified (principal); R53.1 Weakness